=== PATIENT | male | born 1940 | race Caucasian/White ===

== ENCOUNTER → 2020-09-25 10:00 | Outpatient (CLI) | payer BC, SELFPAY | PROVIDERS: PCP Student in an Organized Health Care Education/Training Program; Visit Provider Specialist | DX: N39.0 Urinary tract infection, site not specified (principal); R97.20 Elevated prostate specific antigen [PSA]; N40.1 Benign prostatic hyperplasia with lower urinary tract symptoms; N13.8 Other obstructive and reflux uropathy | CPT/HCPCS: 81002; 87077; 87086; 87147; 87186 ==

== ENCOUNTER → 2020-09-25 11:28 | Outpatient (CLI) | payer BC, SELFPAY ==
[2020-09-25 13:35] LABS: Prostate Specific Antigen 13.1 ng/mL (0.10-4.00)
== END ==
PROVIDERS: PCP Student in an Organized Health Care Education/Training Program; Referring Provider Specialist; Visit Provider Specialist
DX: R97.20 Elevated prostate specific antigen [PSA] (principal)
CPT/HCPCS: 36415; 84153

== ENCOUNTER 2021-02-10 10:14 | Inpatient (IN) | payer BC, MEDICARE, SELFPAY ==
[2021-02-05 08:10] VITALS: BMI 34.8
[2021-02-10] VITALS (34 sets, daily range): BP systolic 100–134; BP diastolic 47–83; PULSE 88–147; RESP 12–20; TEMP 36.1–36.7; O2SAT 91–99; BMI 34.8
--- NOTE | 2021-02-10 | PATH_ITS ---
[facility] Accession Number: [id number] . 01 Material submitted: . prostate - PROSTATE . 01 Clinical history: . SIMPLE OPEN PROSTATECTOMY . 02 Diagnosis: Prostate, Prostatectomy: Prostatic tissue with stromal and glandular hyperplasia. 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 No malignancy identified. [facility] 02/13/2021 1545 Local . 02 Electronically signed: . Carolyn Jones MD, Pathologist NPI- [id number] . 01 Gross description: . The specimen is received in formalin and labeled with prostate adenoma. It consists of a 168 gram, 7.5 cm (left to right) x 6.8 cm (apex to base) x 6.2 cm (anterior to posterior) prostate. The vas deferens and seminal vesicles are not included. The capsule is pink-agrcia focally congested and ragged. The specimen is inked as follows: anterior - yellow, left - green, posterior - red, and right - black. The bladder and apical margins are shaved, and the remaining prostate is serially sectioned from apex to base into seventeen slices. Sectioning reveals pink-garcia, diffusely trabeculated, focally hemorrhagic cut surfaces with cystic degeneration present in less than five percent of cut surfaces. A distinct nodule or lesion is not grossly apparent. Medical Bill Processor sections are submitted. . Summary of Sections: A1-A5 = slice 1, apical margin, radially sectioned, four pieces. A6-A7 = slice 4 posterior, bisected, one piece. A8-A9 = slice 7 posterior, bisected, one piece. A10-A11 = slice 9 posterior, bisected, one piece. A12 = slice 9 anterior left, one piece. A13-A14 = slice 11 posterior, bisected, one piece. A15 = slice 11 anterior right, one piece. A16-A17 = slice 13 posterior, bisected, one piece. A18 = slice 14 posterior left, one piece. A19 = slice 14 posterior right, one piece. A20 = slice 14 anterior left, one piece. A21 = slice 14 anterior right, one piece. A22-A24 = slice 15, graphic art sales representative, one piece. A25-A29 = slice 17, bladder margin, en face, one piece. . Note: Slide A30 was canceled, and it is not in the gross. There is no tissue in that slide, and it does not exist. ([id number]) /[facility] 02/11/2021 1649 Local . 02 Pathologist provided ICD-10: N32.0 . 02 CPT . 046008 Performed at: 01 [facility] [address] [place] [address] [id number] MD Danny Rangel MD Phone: [phone] Performed at: 02 [facility] [address] [place] [address] [id number] MD Carol Ann Jaimes MD Phone: [phone]
--- NOTE | 2021-02-10 11:05 | SUR.PREOP ---
Rapid covid obtained by thao DOBBS and sent will await results.
[2021-02-10 11:37] LABS: COVID19 -Nasal RAPID Negative (Negative)
[2021-02-10] MEDS: LACTATED RINGERS 1,000 ML 42 ML IV ×3 (11:53→15:25)
[2021-02-10] MEDS: GABAPENTIN 300 MG CAPSULE PO (12:06)
--- NOTE | 2021-02-10 12:12 | PM.HP.1 ---
History of Present Illness History of Present Illness Date Patient Seen: 02/10/21 Time Patient Seen: 12:12 Chief complaint: Simple Open Prostatectomy Narrative: Mr. antoine he is an 80-year-old white male presenting today for schedule simple open prostatectomy for a many year history of advancing and now severe lower urinary tract symptoms. He also has a history of elevated PSA and is status post negative prostate needle biopsy in November of 2020. Urethral length was measured at 6 cm and prostate volume was measured at 330 cc. Trials of medical management were attempted but found to provide very little benefit. He has decided he wants to proceed with definitive therapy. Given the markedly increased volume of the prostate, simple open prostatectomy is indicated. Patient History Medical History BPH (benign prostatic hyperplasia) BPH w urinary obs/LUTS Elevated PSA HLD (hyperlipidemia) Pseudophakia Surgical History (Updated 02/05/21 @ 09:19 by Domonique Ragland RN) History of cataract surgery Hx of prostate biopsy (12/10/20) Hx of tonsillectomy (1944) Family & Social History Social History: household members none Prior Living Arrangements House Safety & Behavioral: Feels Safe in Current Yes Environment Been Physically Hurt or No Threatened By a Person Suicidal Ideation Description None Suicide Plan Description No Plan Tobacco & Substance use: Smoking Status Never smoker alcohol intake never Substance Use Type does not use Meds Home Medications and Allergies Home Medications Medication Instructions Recorded Confirmed Type ascorbic acid (vitamin C) 100 mg 100 mg PO DAILY 09/20/20 02/05/21 History tablet (Vitamin C) ciprofloxacin HCl 500 mg tablet 500 mg PO BID #6 tab 12/02/20 02/05/21 Rx Allergies Allergy/AdvReac Type Severity Reaction Status Date / Time No Known Drug Allergies Allergy Verified 02/10/21 11:48 Review of Systems Review of Systems ROS: Yes All systems reviewed with the patient and are negative except as otherwise documented Exam Narrative Exam Narrative: He is a well-developed, moderately over nourished elderly white male looking younger than his stated age. Head/neck-sclera clear and pupils round and equal bilaterally. No visible evidence of adenopathy or JVD. Chest-clear, equal and unlabored expansion bilaterally. Heart-regular rhythm and rate. Objective Labs Labs: Laboratory Results - last 24 hr 02/10/21 10:43 SARS-CoV-2 (PCR) Negative Assessment & Plan Assessment and plan (1) BPH w urinary obs/LUTS: Status: Acute Assessment & Plan narrative: Assessment: 1. Markedly enlarged prostate an 80-year-old male with severe lower urinary tract symptoms and failure medical therapy. Plan: 1. Lengthy discussion informed consent has been obtained for simple open prostatectomy.
--- NOTE | 2021-02-10 12:15 | PM.PREOP ---
Pre-operative Note Interval Note History & Physical reviewed/Exam performed by Physician: Yes Changes to H&P: No
[2021-02-10] MEDS: ACETAMINOPHEN IV 1,000 MG/100 ML VIAL 400 MG IV (13:24)
[2021-02-10] MEDS: CEFAZOLIN 1 GM VIAL 2 GM IV (13:36)
[2021-02-10] MEDS: BUPIVACAINE 0.5% (PF) VIAL 30 ML INJ (13:52)
[2021-02-10] MEDS: BUPIVACAINE LIPOSOME 266 MG/20 ML VIAL INJ (13:53)
[2021-02-10] MEDS: LACTATED RINGERS 1,000 ML 120 ML IV (15:05)
--- NOTE | 2021-02-10 16:02 | PM.OP.1 ---
Operative Date/Time/Diagnoses Date of procedure: 02/10/21 Time of procedure: 16:02 Pre-op diagnosis: Bladder outlet obstruction Post-op diagnosis: same Procedure & Clinicians Procedure: 1. Simple open prostatectomy. Same procedure as scheduled: Yes Indications: 1. Bladder outlet obstruction due to markedly enlarged prostate (330 cc). Surgeon: Haley Penny Link Trainer Operator: Jaycee Arias Anesthesia Type: General, Spinal and Local Operative Notes Findings: Tissue planes were unremarkable other than excessive abdominal wall and intrapelvic fat. Prostate adenoma was expectedly enormous. Closure Type: primary Specimen(s): other (Prostate adenoma.) Applied: catheter (Twenty-four Tuvaluan [address] hematuria catheter) and drain(s) (15 Tu[place]uan Brody drain) Estimated Blood Loss (mL): 400 Blood products transfused: none Tourniquet time (min): 0 Procedure in detail: The patient was positioned in supine following successful placement of Duramorph spinal. He was then provided general anesthesia. The abdomen, genitalia, groin were then prepped and draped in sterile fashion. A 20 Tu[place] Cervantes catheter was inserted in the bladder and the balloon inflated to 15 cc. A midline infraumbilical incision was then made above the pubic symphysis and division of the midline abdominal wall was undertaken using sharp cautery and blunt technique. Retroperitoneal pelvis was then entered and the bladder was filled with 200 cc of sterile saline for localization. The adherent fat to the anterior and dome of the bladder was then carefully resected away using blunt technique. A midline cystotomy was then created in the bladder contents were drained. A solution of local anesthetic with epinephrine was then utilized to infiltrate the mucosa and subcutaneous smooth muscle of the bladder neck. The hand-held cautery was then used to create a circumferential incision at the bladder neck. The adenoma was encountered. And the appropriate plane was developed and exposed successively and painstakingly. An 0 Vicryl suture was used to engage the adenoma and provide gentle traction as dissection continued circumferentially. Eventually the prostatic apex was encountered and the urethra was divided using sharp and blunt technique. Prostatic fossa was then packed with 2 lap sponges and Gelfoam a gentle pressure was applied for approximately 10 minutes. Next the bladder neck was repaired as needed for hemostasis. A [address] 30 [address] Cervantes catheter was then and certain lower urinary tract and advanced with the tip into the bladder under direct visualization. Part of the prostatic capsule anteriorly had during delivery of the very large specimen. This was repaired using a running intermittently locking 2-0 PDS. Next, the anterior cystotomy was closed using a running intermittently locking 2-0 PDS. The catheter balloon was then inflated to 30 cc and the catheter was irrigated and was found to be free of bleeding or clots. A catheter plug was placed in the inflow and the outflow was placed to gravity drainage. Next a 15 [place] Brody drain was positioned through separate stab incision to the right of the midline incision. It was secured to the skin using 2-0 silk using a Lalo sandals technique. Now the midline fascia was reapproximated using running 0 PDS beginning at the superior apex and the inferior apex and meeting at approximately the mid point in time 1 another together. The subcutaneous Kyle's fascia was reapproximated with running 3-0 Vicryl. The skin was reapproximated a running subcuticular 4-0 Monocryl. Telfa dressing was tailored to appropriate size and length for the incision and line and drain. Transparent Op site dressing was then applied over the incision and the drain creating a Bioclusive finish. The patient was then awakened, transferred to [facility], and transported to recovery in stable condition. Complications: none Post-operative Condition: stable Disposition: PACU Plan for aftercare: Acute care
--- NOTE | 2021-02-10 17:34 | SUR.PHASEI ---
1725 Pt transfered to 205 by Rodrick Casiano in bed. Pt awake, alert. Cervantes and Brody drain emptied prior to transferred and pt turned and changed. Pt able to turn self with assist in bed and with moving up in bed. Denies Pain. CBI in place and flowing. SBAR report called to Rosmery CASIANO.
--- NOTE | 2021-02-10 18:06 | PC.ADMIT ---
[address] Admission Note: The patient,Alexis Villareal,80 y/o, was given written information regarding hospital policies, unit procedures and contact persons. Patient's smoking status: Never smoker. Vital Signs - 8 hr 02/10/21 12:08 02/10/21 16:19 02/10/21 16:24 Temperature 98.0 F 97.7 F Pulse Rate 88 108 H 103 H Respiratory Rate 20 12 12 Blood Pressure 134/71 120/65 115/56 L Pulse Oximetry 99 96 95 02/10/21 16:29 02/10/21 16:34 02/10/21 16:39 Temperature Pulse Rate 113 H 109 H 106 H Respiratory Rate 20 18 15 Blood Pressure 111/63 111/63 117/65 Pulse Oximetry 97 95 95 02/10/21 16:44 02/10/21 16:59 02/10/21 17:14 Temperature 98 F Pulse Rate 107 H 106 H 105 H Respiratory Rate 20 12 12 Blood Pressure 114/66 111/61 108/47 L Pulse Oximetry 96 97 97 Patient arrived on floor at 1735 from PACU via bed. Continuous bladder irrigation running, drain and dressings checked with PACU nurse. Post-op vitals started via NICKO Lopez. Patient oriented to room and floor, call light given, bed alarm on. Denies pain at this time. Nguyễn, patient's son, called to let know patient was on floor.
[2021-02-10] MEDS: LACTATED RINGERS 1,000 ML 125 ML IV (19:05)
--- NOTE | 2021-02-10 20:59 | PC.NURSE ---
Dr. Penny notified at 2039 for patients tachycardia. RN reported HR in the 160s/170s. Pt instructed to bear down, no change. Denies pain. Dr. Penny ordered Hospitalist consult. Hospitalists notified via phone. No further orders received.
[2021-02-10 21:22] LABS: Creatine Kinase 152 U/L (55-170); Estimated Glomerular Filt Rate > 60.0 mL/min (>60)
[2021-02-10 21:30] LABS: Add Manual Diff / Slide Review NO; Basophils Absolute Auto 0 /uL (0-100); Basophils Percent Auto 0.1 % (0-2); Eosinophils Absolute Auto 0 /uL (0-450); Hematocrit 39.1 % (41-53); Hemoglobin 12.7 g/dL (13.5-17.5); Lymphocytes Absolute Auto 800 /uL (1100-4500); Lymphocytes Percent Auto 3.1 % (25-40); Mean Corpuscular HGB Conc 32.5 % (30-36); Mean Corpuscular Hemoglobin 29.6 PG (26-34); Mean Corpuscular Volume 90.9 fL (80-100); Monocytes Absolute Auto 1400 /uL (0-900); Monocytes Percent Auto 5.3 % (3-14); Neutrophils Absolute Auto 24200 /uL (1500-7000); Neutrophils Percent Auto 91.5 % (50-75); Platelet Count 286 X10^3/uL (150-400); Red Cell Distribution Width 14.1 % (11.6-14.8); White Blood Cell Count 26.4 X10^3/uL (4.5-11.0)
[2021-02-10] MEDS: SODIUM CHLORIDE 0.9% 100 ML 500 ML IV (21:34)
[2021-02-10 21:35] LABS: Troponin I < 0.012 ng/mL (0.01-0.034)
[2021-02-10 21:38] LABS: CKMB % Relative Index 1.3 % (1.5-5.0); Creatine Kinase MB 1.93 ng/mL (<2.37)
[2021-02-10 21:42] LABS: BUN Creatinine Ratio 18.4 (6-22); Blood Urea Nitrogen 16 mg/dL (9-20); Calcium 8.5 mg/dL (8.4-10.2); Carbon Dioxide 21 mmol/L (22-32); Chloride 103 mmol/L (98-107); Estimated Glomerular Filt Rate > 60.0 mL/min (>60); Glucose 180 mg/dL (80-110); HEMOLYSIS < 15 (0-50); Potassium 4.1 mmol/L (3.4-5.1); Sodium 136 mmol/L (137-145)
[2021-02-10 22:08] LABS: Lactate (Lactic Acid) 5.3 mmol/L (0.7-2.1)
--- NOTE | 2021-02-10 22:12 | DI.RAD.S_ITS ---
PROCEDURE: XR CHEST 1V INDICATIONS: sepsis TECHNIQUE: One view of the chest was acquired. COMPARISON: None. FINDINGS: Surgical changes and devices: None. Lungs and pleura: Lungs are clear. No pleural effusions or pneumothorax. Mildly elevated right hemidiaphragm. Mediastinum: Mediastinal contours appear normal. Heart size is normal. Bones and chest wall: No suspicious bony lesions. Overlying soft tissues appear unremarkable. IMPRESSION: No acute cardiopulmonary disease process. Dictated by: Cait Hilliard MD, PhD on 02/11/2021 at 8:30 Approved by: Cait Hilliard MD, PhD on 02/11/2021 at 8:31
[2021-02-10] MEDS: SODIUM CHLORIDE 0.9% 1,000 ML 150 ML IV (22:15)
[2021-02-10] MEDS: cefTRIAXone 1,000 MG in SODIUM CHLORIDE 0.9% 100 ML 200 ML IV (22:30)
[2021-02-10] MEDS: SODIUM CHLORIDE 0.9% 1,000 ML 1000 ML IV ×2 (23:01→23:49)
[2021-02-10 23:18] LABS: Reflexed Lactate in 2 Hours Y
--- NOTE | 2021-02-10 23:30 | P.CONS_ITS ---
History of Present Illness Consult details Date Patient Seen: 02/10/21 Time Patient Seen: 21:00 Chief complaint: Simple Open Prostatectomy Reason for consult: Elevated heart rate Requesting provider: Haley Penny Narrative: Alexis Villareal is an 80-year-old male with a history of an elevated PSA and hyperlipidemia who lives on Wednesday and was admitted for an elective open prostatectomy done earlier today. The hospital medicine service was requested to assist the urologist with the patient's current report of an elevated heart rate into the 150s. The patient did not report any pain or feel any palpitations. He did state that he felt diaphoretic, requesting that the windows be opened. He denied chest pain. The patient has a 3 way bladder irrigation catheter which was currently alternating between conn colored and clear. There appeared to be some outpatient records that indicated that the patient at that time had a heart rate of 132 and when I entered the room it was in the mid 140s. His blood pressure was on the soft side with a systolic in the 100s but he had a MAP of 82. Meds Home Medications and Allergies Home Medications Medication Instructions Recorded Confirmed Type ascorbic acid (vitamin C) 100 mg 100 mg PO DAILY 09/20/20 02/10/21 History tablet (Vitamin C) ciprofloxacin HCl 500 mg tablet 500 mg PO BID #6 tab 12/02/20 02/10/21 Rx guaifenesin 600 mg tablet, 1,200 mg PO DAILY 02/10/21 02/10/21 History extended release 12 hr (Mucinex) Allergies Allergy/AdvReac Type Severity Reaction Status Date / Time No Known Drug Allergies Allergy Verified 02/10/21 11:48 Review of Systems Review of Systems ROS: Yes All systems reviewed with the patient and are negative except as otherwise documented Exam Vital Signs (past 8 hours): - 02/10/21 16:19 02/10/21 16:24 02/10/21 16:29 Temperature 97.7 F Pulse Rate 108 H 103 H 113 H Respiratory Rate 12 12 20 Blood Pressure 120/65 115/56 L 111/63 Pulse Oximetry 96 95 97 02/10/21 16:34 02/10/21 16:39 02/10/21 16:44 Temperature Pulse Rate 109 H 106 H 107 H Respiratory Rate 18 15 20 Blood Pressure 111/63 117/65 114/66 Pulse Oximetry 95 95 96 02/10/21 16:59 02/10/21 17:14 02/10/21 17:35 Temperature 98 F 97.6 F Pulse Rate 106 H 105 H 113 H Respiratory Rate 12 12 16 Blood Pressure 111/61 108/47 L 120/71 Pulse Oximetry 97 97 92 02/10/21 18:05 02/10/21 18:35 02/10/21 19:04 Temperature 97.3 F L 97.0 F L Pulse Rate 113 H 118 H 138 H Respiratory Rate 16 17 Blood Pressure 119/68 121/72 129/83 Pulse Oximetry 91 94 02/10/21 19:35 02/10/21 20:01 02/10/21 20:04 Temperature 96.9 F L Pulse Rate 130 H 129 H Respiratory Rate 18 Blood Pressure 116/74 118/74 Pulse Oximetry 94 96 02/10/21 20:32 02/10/21 20:35 02/10/21 21:11 Temperature 97.4 F L Pulse Rate 141 H 144 H Respiratory Rate 18 Blood Pressure 109/76 109/76 Pulse Oximetry 95 97 02/10/21 21:19 02/10/21 21:22 02/10/21 21:25 Temperature Pulse Rate 143 H 137 H 138 H Respiratory Rate Blood Pressure 100/67 110/78 122/75 Pulse Oximetry 02/10/21 21:37 02/10/21 21:44 02/10/21 21:54 Temperature Pulse Rate 135 H 133 H 128 H Respiratory Rate Blood Pressure 104/69 100/68 116/67 Pulse Oximetry 02/10/21 22:05 02/10/21 22:15 02/10/21 22:21 Temperature Pulse Rate 126 H 127 H 147 H Respiratory Rate 18 Blood Pressure 106/63 114/67 Pulse Oximetry 97 02/10/21 22:25 02/10/21 22:35 02/10/21 22:45 Temperature Pulse Rate 137 H 124 H 122 H Respiratory Rate Blood Pressure 111/74 115/72 120/73 Pulse Oximetry 02/10/21 22:55 Temperature Pulse Rate 123 H Respiratory Rate Blood Pressure 119/78 Pulse Oximetry Oxygen Delivery Method Nasal Cannula Oxygen Flow Rate 2 Narrative Exam Narrative: Gen: Alert, oriented, obese 80 y.o. male, diaphoretic HEENT: normocephalic, atraumatic, conjunctiva clear, sclera non-icteric, oral mucosa pink and moist Neck: supple, full ROM, no JVD, trachea is midline Resp: Lungs CTA, non-labored breathing CV: RRR, grade 2 holosystolic murmur Abd: soft, non-tender, normoactive BTs : He has a 3 way bladder irrigation Cervantes set up draining pink to red colored urine Skin: no lesions or rashes, dry and intact Neuro: Alert and oriented X 4 w/no focal deficits. Speech clear and coherent. Extremities: moves all 4 extremities, is ambulatory, negative Yolis?s sign Psyche: normal mood and affect. Objective ECG Impression: SVT of 142, interpreted by me. Labs Result Diagrams: 02/10/21 20:55 02/10/21 21:16 Labs: Laboratory Results - last 24 hr 02/10/21 02/10/21 02/10/21 10:43 20:55 20:55 WBC 26.4 H RBC 4.30 L Hgb 12.7 L Hct 39.1 L MCV 90.9 MCH 29.6 MCHC 32.5 RDW 14.1 Plt Count 286 Neut % (Auto) 91.5 H Lymph % (Auto) 3.1 L [place] % (Auto) 5.3 Eos % (Auto) 0.0 L Baso % (Auto) 0.1 Neut # (Auto) 82619 H Lymph # (Auto) 800 L [place] # (Auto) 1400 H Eos # (Auto) 0 Baso # (Auto) 0 Sodium Potassium Chloride Carbon Dioxide BUN Creatinine 0.90 Estimated GFR > 60.0 BUN/Creatinine Ratio Glucose Lactate Calcium Magnesium Total Creatine Kinase CK-MB (CK-2) CK-MB (CK-2) Rel Index Troponin I SARS-CoV-2 (PCR) Negative 02/10/21 02/10/21 02/10/21 20:55 20:55 21:16 WBC RBC Hgb Hct MCV MCH MCHC RDW Plt Count Neut % (Auto) Lymph % (Auto) [place] % (Auto) Eos % (Auto) Baso % (Auto) Neut # (Auto) Lymph # (Auto) [place] # (Auto) Eos # (Auto) Baso # (Auto) Sodium Potassium Chloride Carbon Dioxide BUN Creatinine Estimated GFR BUN/Creatinine Ratio Glucose Lactate 5.3 H* Calcium Magnesium 2.0 Total Creatine Kinase 152 CK-MB (CK-2) 1.93 CK-MB (CK-2) Rel Index 1.3 L Troponin I < 0.012 SARS-CoV-2 (PCR) 02/10/21 21:16 WBC RBC Hgb Hct MCV MCH MCHC RDW Plt Count Neut % (Auto) Lymph % (Auto) [place] % (Auto) Eos % (Auto) Baso % (Auto) Neut # (Auto) Lymph # (Auto) [place] # (Auto) Eos # (Auto) Baso # (Auto) Sodium 136 L Potassium 4.1 Chloride 103 Carbon Dioxide 21 L BUN 16 Creatinine 0.87 Estimated GFR > 60.0 BUN/Creatinine Ratio 18.4 Glucose 180 H Lactate Calcium 8.5 Magnesium Total Creatine Kinase CK-MB (CK-2) CK-MB (CK-2) Rel Index Troponin I SARS-CoV-2 (PCR) Assessment & Plan Assessment and plan (1) SVT (supraventricular tachycardia): Status: Acute (2) History of prostate surgery: Status: Acute (3) Sepsis: Status: Acute (4) Bacteremia: Status: Acute Assessment & Plan narrative: Alexis Villareal was found to be in SVT as determined by EKG. Patient's blood pressure was soft and concerning for attempting cardioversion with diltiazem. Consideration was made to administer adenosine however with normal saline boluses the patient's heart rate responded to such. He was given 3 L of normal saline boluses based on sepsis protocol. He was ordered for a full lab panel, troponin, and lactate as preoperative labs had not been done. Patient's blood cultures were taken and he was started on IV ceftriaxone due to his symptoms. His lactate was intially 5.5, WBC 26,000 with a left shift of 24,000. Treated patient symptomatically with ice packs due to his perception of a fever however he was not febrile. 1. SVT, acute and present s/p surgery * EKG was done indicated SVT * Patient was bolused initially 500 cc of normal saline 2. Sepsis in the setting of postoperative state * Chest xray report indicated elevation of the right hemidiaphragm with volume loss and pneumonia is not likely * Sepsis protocol initiated w/3 additional liters of IV NS bolus * Procalcitonin was 0.11, normal 3. Open prostatectomy * Managed by surgery Critical Care Time Critical Care Time: Yes Total Critical Care Time: 90 minutes Attestation: The high probability of a clinically significant, sudden or life threatening deterioration of the circulatory system(s) required my full and direct attention, intervention and personal management. The aggregate critical care time was 90 minutes. This time is in addition to time spent performing reported procedures but includes the following: * Data Review and interpretation * Patient assessment and monitoring of vital signs * Documentation * Medication orders and management VTE prophylaxis: Bilateral SCDs, patient is POD #0 Patient is transferred to the ICU. FEN: IV NS at 150 ml/hour, diet orders per surgery, CMP and magnesium in the am. Dispo: per surgery and as soon as he is stable Code Status: Full code as discussed with patient Nguyễn Garibay, son, surrogate and POA Thank you for the opportunity to consult on this patient. COVID-19 COVID-19 status: Negative Result date/Date tested (Pos, Neg/Pending): 02/10/21 Time Spent With Patient Time with patient: Greater than 35 minutes (Critical care time: 90 minutes)
[2021-02-10 23:53] LABS: Lactate 2HR (Lactic Acid Rflx) 2.1 mmol/L (0.7-2.1)
[2021-02-11] VITALS (11 sets, daily range): BP systolic 109–136; BP diastolic 51–62; PULSE 88–111; RESP 14–18; TEMP 36.2–37.2; O2SAT 93–97; BMI 34.8
[2021-02-11] MEDS: SODIUM CHLORIDE 0.9% 1,000 ML 1000 ML IV (00:53)
--- NOTE | 2021-02-11 01:26 | PC.NURSE ---
2300-Patient transferred from room 205 beside report received from Rosmery DOBBS. Patient is alert and oriented and in no distress. Continuous Bladder Irrigation infusion per orders output paez colored. Heart rate at this time is sinus tach at 110. Patient reports he has no pain. Sepsis protocol .9ns infusion per orders. Patient is tolerating well. Upon assessment patient noted to have a loud murmur and or rub. FINISHED [employer] MAKER Escalante asked to come and assess as this is not noted in patients admit assessments. Will monitor closely.
[2021-02-11] MEDS: SODIUM CHLORIDE 0.9% 1,000 ML 150 ML IV (02:14)
[2021-02-11 03:50] LABS: Procalcitonin 0.11 ng/mL (<0.5)
[2021-02-11 04:45] LABS: Add Manual Diff / Slide Review NO; Basophils Absolute Auto 0 /uL (0-100); Basophils Percent Auto 0.1 % (0-2); Eosinophils Absolute Auto 0 /uL (0-450); Hematocrit 31.3 % (41-53); Hemoglobin 10.4 g/dL (13.5-17.5); Lymphocytes Absolute Auto 900 /uL (1100-4500); Lymphocytes Percent Auto 5.5 % (25-40); Mean Corpuscular HGB Conc 33.3 % (30-36); Mean Corpuscular Hemoglobin 30.3 PG (26-34); Mean Corpuscular Volume 90.8 fL (80-100); Monocytes Absolute Auto 1100 /uL (0-900); Monocytes Percent Auto 6.7 % (3-14); Neutrophils Absolute Auto 14500 /uL (1500-7000); Neutrophils Percent Auto 87.7 % (50-75); Platelet Count 224 X10^3/uL (150-400); Red Blood Cell Count 3.44 X10^6/uL (4.5-5.9); White Blood Cell Count 16.5 X10^3/uL (4.5-11.0)
[2021-02-11 04:53] LABS: Alanine Aminotransferase 21 IU/L (<50); Albumin 2.6 g/dL (3.5-5.0); Alkaline Phosphatase 65 U/L (38-126); Aspartate Aminotransferase 29 IU/L (17-59); BUN Creatinine Ratio 23.7 (6-22); Bilirubin Total 0.4 mg/dL (0.2-1.3); Bilirubin Unconjugated 0.3 mg/dL (0.0-1.1); Blood Urea Nitrogen 14 mg/dL (9-20); Calcium 7.4 mg/dL (8.4-10.2); Carbon Dioxide 25 mmol/L (22-32); Chloride 109 mmol/L (98-107); Estimated Glomerular Filt Rate > 60.0 mL/min (>60); Globulin 2.7 g/dL (1.7-4.1); Glucose 139 mg/dL (80-110); HEMOLYSIS < 15 (0-50); Magnesium 1.9 mg/dL (1.6-2.3); Potassium 4.3 mmol/L (3.4-5.1); Sodium 136 mmol/L (137-145); Total Protein 5.3 g/dL (6.3-8.2)
--- NOTE | 2021-02-11 07:46 | P.PN_ITS ---
Subjective Subjective Date Patient Seen: 02/11/21 Time Patient Seen: 07:47 Interval history: The patient is postop day 1. Status post simple open prostatectomy. In the early postoperative. He developed sinus tachycardia in the 160s. He remained afebrile. Blood pressure was mildly depressed with systolics in the 100s and MAP of 82. I was contacted by nursing with regard to tachycardia. I requested hospitalist evaluation, which was kindly accepted by Dr. Escalante. The patient reports feeling well this morning and slept well through the night. He denies significant pain. He is drinking p.o. fluids. Vital signs have essentially normal eyes following IV fluid boluses per sepsis protocol and 1 g of ceftriaxone intravenously. He had received 2 g of cefazolin preoperatively. Per routine a urine specimen was obtained prior to operation while in the operating room. Upon my review of [facility], the specimen had been received by the lab but no reporting is documented in the EHR at this time. Exam Vital Signs (past 8 hours): - 02/11/21 00:00 02/11/21 01:00 02/11/21 02:00 Temperature 97.1 F L Pulse Rate 103 H 92 H 90 Blood Pressure 115/62 109/55 L 117/59 L Pulse Oximetry 97 96 97 02/11/21 03:00 02/11/21 04:00 02/11/21 06:00 Temperature 97.5 F L Pulse Rate 89 90 Blood Pressure 109/59 L 113/56 L Pulse Oximetry 97 97 Oxygen Delivery Method Nasal Cannula Oxygen Flow Rate 2 Narrative Exam Narrative: He is resting comfortably in bed and in no distress. Chest-equal and unlabored expansion bilaterally. Heart-NSR Abdomen-bowel tones are present the abdomen is nondistended. Dressings and BRANDT drain are intact. Cervantes-outflow was light pink without clots at minimal CBI drip rate. Extremities-pulses are palpable and without cyanosis or pallor. Objective Labs Result Diagrams: 02/11/21 04:19 02/11/21 04:19 Labs: Laboratory Results - last 24 hr 02/10/21 02/10/21 02/10/21 10:43 20:55 20:55 WBC 26.4 H RBC 4.30 L Hgb 12.7 L Hct 39.1 L MCV 90.9 MCH 29.6 MCHC 32.5 RDW 14.1 Plt Count 286 Neut % (Auto) 91.5 H Lymph % (Auto) 3.1 L [place] % (Auto) 5.3 Eos % (Auto) 0.0 L Baso % (Auto) 0.1 Neut # (Auto) 22370 H Lymph # (Auto) 800 L [place] # (Auto) 1400 H Eos # (Auto) 0 Baso # (Auto) 0 Sodium Potassium Chloride Carbon Dioxide BUN Creatinine 0.90 Estimated GFR > 60.0 BUN/Creatinine Ratio Glucose Lactate Calcium Magnesium Total Bilirubin Conjugated Bilirubin Unconjugated Bilirubin AST ALT Alkaline Phosphatase Total Creatine Kinase CK-MB (CK-2) CK-MB (CK-2) Rel Index Troponin I Total Protein Albumin Globulin Albumin/Globulin Ratio Procalcitonin SARS-CoV-2 (PCR) Negative 02/10/21 02/10/21 02/10/21 20:55 20:55 20:55 WBC RBC Hgb Hct MCV MCH MCHC RDW Plt Count Neut % (Auto) Lymph % (Auto) [place] % (Auto) Eos % (Auto) Baso % (Auto) Neut # (Auto) Lymph # (Auto) [place] # (Auto) Eos # (Auto) Baso # (Auto) Sodium Potassium Chloride Carbon Dioxide BUN Creatinine Estimated GFR BUN/Creatinine Ratio Glucose Lactate Calcium Magnesium 2.0 Total Bilirubin Conjugated Bilirubin Unconjugated Bilirubin AST ALT Alkaline Phosphatase Total Creatine Kinase 152 CK-MB (CK-2) 1.93 CK-MB (CK-2) Rel Index 1.3 L Troponin I < 0.012 Total Protein Albumin Globulin Albumin/Globulin Ratio Procalcitonin 0.11 SARS-CoV-2 (PCR) 02/10/21 02/10/21 02/10/21 21:16 21:16 23:31 WBC RBC Hgb Hct MCV MCH MCHC RDW Plt Count Neut % (Auto) Lymph % (Auto) [place] % (Auto) Eos % (Auto) Baso % (Auto) Neut # (Auto) Lymph # (Auto) [place] # (Auto) Eos # (Auto) Baso # (Auto) Sodium 136 L Potassium 4.1 Chloride 103 Carbon Dioxide 21 L BUN 16 Creatinine 0.87 Estimated GFR > 60.0 BUN/Creatinine Ratio 18.4 Glucose 180 H Lactate 5.3 H* 2.1 Calcium 8.5 Magnesium Total Bilirubin Conjugated Bilirubin Unconjugated Bilirubin AST ALT Alkaline Phosphatase Total Creatine Kinase CK-MB (CK-2) CK-MB (CK-2) Rel Index Troponin I Total Protein Albumin Globulin Albumin/Globulin Ratio Procalcitonin SARS-CoV-2 (PCR) 02/11/21 02/11/21 04:19 04:19 WBC 16.5 H RBC 3.44 L Hgb 10.4 L Hct 31.3 L MCV 90.8 MCH 30.3 MCHC 33.3 RDW 14.0 Plt Count 224 Neut % (Auto) 87.7 H Lymph % (Auto) 5.5 L [place] % (Auto) 6.7 Eos % (Auto) 0.0 L Baso % (Auto) 0.1 Neut # (Auto) 69047 H Lymph # (Auto) 900 L [place] # (Auto) 1100 H Eos # (Auto) 0 Baso # (Auto) 0 Sodium 136 L Potassium 4.3 Chloride 109 H Carbon Dioxide 25 BUN 14 Creatinine 0.59 L Estimated GFR > 60.0 BUN/Creatinine Ratio 23.7 H Glucose 139 H Lactate Calcium 7.4 L Magnesium 1.9 Total Bilirubin 0.4 Conjugated Bilirubin 0.0 Unconjugated Bilirubin 0.3 AST 29 ALT 21 Alkaline Phosphatase 65 Total Creatine Kinase CK-MB (CK-2) CK-MB (CK-2) Rel Index Troponin I Total Protein 5.3 L Albumin 2.6 L Globulin 2.7 Albumin/Globulin Ratio 1.0 Procalcitonin SARS-CoV-2 (PCR) [facility] Medical History BPH (benign prostatic hyperplasia) BPH w urinary obs/LUTS Elevated PSA HLD (hyperlipidemia) Pseudophakia Surgical History History of cataract surgery Hx of prostate biopsy (12/10/20) Hx of tonsillectomy (1945) Social History marital status: household members: none Smoking Status: Never smoker alcohol intake: never caffeine: No additional 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 Stable postoperative day 1. Status post simple open prostatectomy. 2. Postoperative sinus tachycardia and noted leukocytosis with left shift. Urinalysis/culture and blood cultures pending. Differential includes bacteremia/early sepsis versus hypovolemia in the early postoperative. Plan: 1. Increase diet and activity as tolerated. 2. Pathology pending. 3. Continue ceftriaxone 1 g intravenous Q 24 hours. 4. Follow-up on pending cultures. Quality VTE Deep Vein Thrombosis/Pulmonary Embolism Present on Admission: No
[2021-02-11] MEDS: ENOXAPARIN 30 MG/0.3 ML SYRINGE SUBCUT (09:30)
[2021-02-11] MEDS: guaiFENesin ER 600 MG TAB 1200 MG PO (09:31)
--- NOTE | 2021-02-11 10:58 | PC.NURSE ---
PT REPORTS NO PAIN WHILE LYING IN BED- HE DID STATE HE FELT PRESSURE INDICATING LOWER ABD WHILE STANDING AND TRANSFERRING TO CHAIR. CONTINUOUS BLADDER IRRIGATION STOPPED AT [address], WELL SALINE LOCKED IV - ENCOURAGED INCREASED PO INTAKE
--- NOTE | 2021-02-11 14:31 | CM.DANOTE ---
([facility]/Hospitalist consult) Pt. here for prostatectomy but had runs of SVT that required treatment. Pt. lives independently in [place] with his cat and dog. Independent ADLs . Son is Nguyễn Garibay [phone] Plan: home with no resource needs
--- NOTE | 2021-02-11 17:06 | P.PN_ITS ---
Subjective Subjective Interval history: The patient is an 80-year-old male admitted after an open prostatectomy with Urology. Overnight the patient developed a rapid heart rate into the 170s. Medicine was consulted at that time. His heart rate has dramatically improved today, and his supraventricular tachycardia was likely in the setting of severe hypovolemia. He possibly was infected given a WBC of 26 and elevated lactate but no source of infection has been found and procalcitonin was within normal limits. Urine culture done earlier is still pending, blood cultures are thus far negative as well. The patient feels well today and has minimal pain after his surgery. He denies any palpitations, chest pain, nausea, vomiting, or abdominal pain. Exam Vital Signs (past 8 hours): - 02/11/21 12:00 02/11/21 16:13 Temperature 98.4 F 98.3 F Pulse Rate 95 H 102 H Respiratory Rate 14 17 Blood Pressure 130/51 L 117/60 Pulse Oximetry 95 96 Oxygen Delivery Method Room Air Oxygen Flow Rate 0 Narrative Exam Narrative: Gen: Alert, oriented, obese 80 y.o. male, diaphoretic HEENT: normocephalic, atraumatic, conjunctiva clear, sclera non-icteric, oral mucosa pink and moist Neck: supple, full ROM, no JVD, trachea is midline Resp: Lungs CTA, non-labored breathing CV: RRR, no murmurs, rubs, or gallops. Abd: soft, non-tender. BRANDT drain with sanguinous output, minimal. : He has a 3 way bladder irrigation Cervantes set up draining pink to red colored urine Skin: no lesions or rashes, dry and intact Neuro: Alert and oriented X 4 w/no focal deficits. Speech clear and coherent. Extremities: moves all 4 extremities, is ambulatory, negative Yolis?s sign Psyche: normal mood and affect. Objective Labs Result Diagrams: 02/11/21 04:19 02/11/21 04:19 Labs: Laboratory Results - last 24 hr 02/10/21 02/10/21 02/10/21 20:55 20:55 20:55 WBC 26.4 H RBC 4.30 L Hgb 12.7 L Hct 39.1 L MCV 90.9 MCH 29.6 MCHC 32.5 RDW 14.1 Plt Count 286 Neut % (Auto) 91.5 H Lymph % (Auto) 3.1 L [place] % (Auto) 5.3 Eos % (Auto) 0.0 L Baso % (Auto) 0.1 Neut # (Auto) 77520 H Lymph # (Auto) 800 L [place] # (Auto) 1400 H Eos # (Auto) 0 Baso # (Auto) 0 Sodium Potassium Chloride Carbon Dioxide BUN Creatinine 0.90 Estimated GFR > 60.0 BUN/Creatinine Ratio Glucose Lactate Calcium Magnesium Total Bilirubin Conjugated Bilirubin Unconjugated Bilirubin AST ALT Alkaline Phosphatase Total Creatine Kinase 152 CK-MB (CK-2) 1.93 CK-MB (CK-2) Rel Index 1.3 L Troponin I < 0.012 Total Protein Albumin Globulin Albumin/Globulin Ratio Procalcitonin 02/10/21 02/10/21 02/10/21 20:55 20:55 21:16 WBC RBC Hgb Hct MCV MCH MCHC RDW Plt Count Neut % (Auto) Lymph % (Auto) [place] % (Auto) Eos % (Auto) Baso % (Auto) Neut # (Auto) Lymph # (Auto) [place] # (Auto) Eos # (Auto) Baso # (Auto) Sodium Potassium Chloride Carbon Dioxide BUN Creatinine Estimated GFR BUN/Creatinine Ratio Glucose Lactate 5.3 H* Calcium Magnesium 2.0 Total Bilirubin Conjugated Bilirubin Unconjugated Bilirubin AST ALT Alkaline Phosphatase Total Creatine Kinase CK-MB (CK-2) CK-MB (CK-2) Rel Index Troponin I Total Protein Albumin Globulin Albumin/Globulin Ratio Procalcitonin 0.11 02/10/21 02/10/21 02/11/21 21:16 23:31 04:19 WBC 16.5 H RBC 3.44 L Hgb 10.4 L Hct 31.3 L MCV 90.8 MCH 30.3 MCHC 33.3 RDW 14.0 Plt Count 224 Neut % (Auto) 87.7 H Lymph % (Auto) 5.5 L [place] % (Auto) 6.7 Eos % (Auto) 0.0 L Baso % (Auto) 0.1 Neut # (Auto) 98394 H Lymph # (Auto) 900 L [place] # (Auto) 1100 H Eos # (Auto) 0 Baso # (Auto) 0 Sodium 136 L Potassium 4.1 Chloride 103 Carbon Dioxide 21 L BUN 16 Creatinine 0.87 Estimated GFR > 60.0 BUN/Creatinine Ratio 18.4 Glucose 180 H Lactate 2.1 Calcium 8.5 Magnesium Total Bilirubin Conjugated Bilirubin Unconjugated Bilirubin AST ALT Alkaline Phosphatase Total Creatine Kinase CK-MB (CK-2) CK-MB (CK-2) Rel Index Troponin I Total Protein Albumin Globulin Albumin/Globulin Ratio Procalcitonin 02/11/21 04:19 WBC RBC Hgb Hct MCV MCH MCHC RDW Plt Count Neut % (Auto) Lymph % (Auto) [place] % (Auto) Eos % (Auto) Baso % (Auto) Neut # (Auto) Lymph # (Auto) [place] # (Auto) Eos # (Auto) Baso # (Auto) Sodium 136 L Potassium 4.3 Chloride 109 H Carbon Dioxide 25 BUN 14 Creatinine 0.59 L Estimated GFR > 60.0 BUN/Creatinine Ratio 23.7 H Glucose 139 H Lactate Calcium 7.4 L Magnesium 1.9 Total Bilirubin 0.4 Conjugated Bilirubin 0.0 Unconjugated Bilirubin 0.3 AST 29 ALT 21 Alkaline Phosphatase 65 Total Creatine Kinase CK-MB (CK-2) CK-MB (CK-2) Rel Index Troponin I Total Protein 5.3 L Albumin 2.6 L Globulin 2.7 Albumin/Globulin Ratio 1.0 Procalcitonin [facility] Medical History BPH (benign prostatic hyperplasia) BPH w urinary obs/LUTS Elevated PSA HLD (hyperlipidemia) Pseudophakia Surgical History History of cataract surgery Hx of prostate biopsy (12/10/20) Hx of tonsillectomy (194) Social History marital status: household members: none Smoking Status: Never smoker alcohol intake: never caffeine: 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 Overnight the patient developed a rapid heart rate into the 170s. Medicine was consulted at that time. 1. SVT, acute, resolved. - likely secondary to hypovolemia, possibly compounded with pain. Rates to the 170s on telemetry. He had tachycardia to the 130s as an outpatient in the clinic. EKG with an SVT here, now with borderline sinus tachycardia. Troponins were negative. Would recommend outpatient evaluation with PCP for possible chronic tachycardia given outpatient vital signs documented (holter monitor). - no current need for TTE given improvement. - ACS unlikely, troponin negative and no evidence of acute ischemia on EKG. 2. rule out Sepsis cultures thus far negative. Initial leukocytosis may be from dehydration and post operative stress, but cultures pending. Discontinue antibiotics tomorrow if cultures still negative. Sepsis protocol initiated w/3 additional liters of IV NS bolus and antibiotics. Procalcitonin was 0.11, normal 3. s/p Open prostatectomy Managed by urology Code Status: Full code as discussed with patient Nguyễn Garibay, son, surrogate and POA Thank you for the opportunity to consult on this patient. Medicine will continue to follow for now, pending cultures. If cultures negative can likely discharge tomorrow from medical perspective. Quality VTE Deep Vein Thrombosis/Pulmonary Embolism Present on Admission: No
[2021-02-11] MEDS: ACETAMINOPHEN 325 MG TABLET 650 MG PO (17:47)
--- NOTE | 2021-02-11 17:50 | PC.NURSE ---
Patient up to the bathroom for BM w/o results, patient refused dinner or prune juice. Noticed small amount of blood from pts meatus coming from around the campos catheter, cleaned up once patient got back into bed. Scant drainage noted at incision site, no drainage noted around dimitrios drain. Patient c/o mild discomfort at groin area, tylenol given. Patient resting in bed at this time.
[2021-02-11] MEDS: OXYCODONE IR 5 MG TABLET PO (21:00)
[2021-02-11] MEDS: cefTRIAXone 1,000 MG in SODIUM CHLORIDE 0.9% 100 ML 200 ML IV (21:00)
[2021-02-12] VITALS (10 sets, daily range): BP systolic 137–170; BP diastolic 65–95; PULSE 88–130; RESP 16–22; TEMP 36.1–37.2; O2SAT 91–95
[2021-02-12 01:48] LABS: Acinetobacter baumannii Not Detected (Not Detect); Candida albicans Not Detected (Not Detect); Candida glabrata Not Detected (Not Detect); Candida krusei Not Detected (Not Detect); Candida parapsilosis Not Detected (Not Detect); Candida tropicalis Not Detected (Not Detect); E. coli Not Detected (Not Detect); Enterobacter cloacae complex Not Detected (Not Detect); Enterobacteriaceae species Not Detected (Not Detect); Enterococcus species Not Detected (Not Detect); Haemophilus influenzae Not Detected (Not Detect); Listeria monocytogenes Not Detected (Not Detect); Methicillin-resistant gene Not Detected (Not Detect); Neisseria meningitidis Not Detected (Not Detect); Proteus species Not Detected (Not Detect); Pseudomonas aeruginosa Not Detected (Not Detect); Serratia marcescens Not Detected (Not Detect); Staphylococcus species Detected (Not Detect); Streptococcus agalactiae (Gr B Not Detected (Not Detect); Streptococcus pneumonia Not Detected (Not Detect); Streptococcus pyogenes (Gr A) Not Detected (Not Detect); Streptococcus species Not Detected (Not Detect)
--- NOTE | 2021-02-12 02:08 | PC.NURSE ---
Addendum entered by Janneth Ross R.N. 02/12/21 05:57: 0600- Metoprolol 25mg po given for elevated Heart rate. BP 143/67. Will monitor. Addendum entered by Janneth Ross R.N. 02/12/21 05:32: 0500- Patient assisted up to the [facility]. Unable to move his bowels and did not pass gas. Continues to ooz from his meatus. Suellen care done. Good uop hematuria noted. Patient continues to have a elevated heart rate 130's to 150. ALESSIA Lama notified order rec. Bowel care given. Will monitor. Addendum entered by Janneth Ross R.N. 02/12/21 03:08: 0310- Patient resting comfortably now. Heart rate 109 Sinus Tach. Patient is sleeping. Will monitor. Original Note: 0200- Heart rate 162 seems regular patient is asymptomatic. EKG ordered will monitor. 0215- Patient had a small emesis. States he did not feel nauseated it just came up. ALESSIA Lama aware and orders rec.
[2021-02-12] MEDS: ONDANSETRON 4 MG/2 ML INJ IV ×2 (02:46→20:20)
[2021-02-12] MEDS: MORPHINE 2 MG/ML INJ IV (02:46)
[2021-02-12] MEDS: SENNOSIDES 8.6 MG TABLET 17.2 MG PO (02:47)
[2021-02-12] MEDS: SODIUM CHLORIDE 0.9% 1,000 ML 84 ML IV ×2 (03:07→14:18)
[2021-02-12 05:49] LABS: Add Manual Diff / Slide Review NO; Alanine Aminotransferase 22 IU/L (<50); Albumin 3.3 g/dL (3.5-5.0); Albumin Globulin Ratio 1.1 (1.0-2.8); Alkaline Phosphatase 86 U/L (38-126); Aspartate Aminotransferase 43 IU/L (17-59); BUN Creatinine Ratio 18.4 (6-22); Basophils Absolute Auto 0 /uL (0-100); Basophils Percent Auto 0.2 % (0-2); Bilirubin Total 0.6 mg/dL (0.2-1.3); Bilirubin Unconjugated 0.5 mg/dL (0.0-1.1); Blood Urea Nitrogen 14 mg/dL (9-20); Calcium 8.5 mg/dL (8.4-10.2); Carbon Dioxide 23 mmol/L (22-32); Chloride 107 mmol/L (98-107); Eosinophils Absolute Auto 0 /uL (0-450); Estimated Glomerular Filt Rate > 60.0 mL/min (>60); Globulin 3.1 g/dL (1.7-4.1); Glucose 154 mg/dL (80-110); HEMOLYSIS < 15 (0-50); Hematocrit 34.6 % (41-53); Hemoglobin 11.3 g/dL (13.5-17.5); Lymphocytes Absolute Auto 2300 /uL (1100-4500); Lymphocytes Percent Auto 11.5 % (25-40); Mean Corpuscular HGB Conc 32.8 % (30-36); Mean Corpuscular Hemoglobin 29.8 PG (26-34); Mean Corpuscular Volume 90.9 fL (80-100); Monocytes Absolute Auto 1400 /uL (0-900); Monocytes Percent Auto 7.1 % (3-14); Neutrophils Absolute Auto 16600 /uL (1500-7000); Neutrophils Percent Auto 81.2 % (50-75); Platelet Count 259 X10^3/uL (150-400); Potassium 3.8 mmol/L (3.4-5.1); Red Cell Distribution Width 14.3 % (11.6-14.8); Sodium 137 mmol/L (137-145); Total Protein 6.4 g/dL (6.3-8.2); White Blood Cell Count 20.4 X10^3/uL (4.5-11.0)
[2021-02-12] MEDS: METOPROLOL IR 25 MG TABLET PO (05:51)
[2021-02-12 07:03] LABS: Hemoglobin A1C% w Est Avg Glu 5.5 % (4.0-6.0)
--- NOTE | 2021-02-12 07:39 | DI.ECHO.S_ITS ---
[facility] +---------+ [facility] +---------+ : : [address] : : : : [id number] : : : : Phone: [phone]+ Echocardiogram Report + + :Name: TAWANA JAMA Study Date: 02/13/2021 Height: 71 in : :[facility] ReadingLocation: Weight: 249 lb : : Gender: Male BSA: 2.3 m2 : :: 1940 Age: 80 yrs BP: 136/61 mmHg: :Reason For Study: STAPH BACTEREMIA : :Ordering Physician: MARISABEL, : :DUSTIN KAUFMAN Performed By: Jaquelin Finn : :Referring: DUSTIN PETIT : + + Interpretation Summary The ejection fraction is estimated to be 55-60%. The right ventricle is mildly dilated. The mitral valve leaflets appear mildly thickened, but open well. The mitral valve chordae are thickened and/or calcified. There is mild mitral regurgitation. The aortic valve is severely calcified. There is severe aortic stenosis. The calculated aortic valve area is .75 cm2. There is mild aortic regurgitation. There is mild tricuspid regurgitation. Procedure: A two-dimensional transthoracic echocardiogram with color flow and Doppler was performed. The study quality was technically adequate. There is no prior echocardiogram noted for this patient. The patient was in sinus rhythm with heart rates between 76-86 bpm during the exam. Left Ventricle: The left ventricle is normal in size. There is mild concentric left ventricular hypertrophy. The ejection fraction is estimated to be 55-60%. Left ventricular wall motion is normal. Right Ventricle: The right ventricle is mildly dilated. Right venticular systolic function appears visually grossly normal. Atria: The left atrial size is normal. Right atrial size is normal. There is no Doppler evidence for an interatrial shunt. Mitral Valve: There is mild mitral annular calcification. The mitral valve leaflets appear mildly thickened, but open well. The mitral valve chordae are thickened and/or calcified. There is mild mitral regurgitation. Aortic Valve: The aortic valve is severely calcified. There is severe aortic stenosis. The peak aortic velocity is 4.15 m/sec. The aortic valve mean gradient is 44 mmHg. The calculated aortic valve area is .75 cm2. There is mild aortic regurgitation. Tricuspid Valve: The tricuspid valve leaflets are thin and pliable. There is mild tricuspid regurgitation. Right ventricular systolic pressure is estimated to be 25 mmHg plus the clinically estimated CVP which cannot be estimated on this exam. Pulmonic Valve: The pulmonic valve leaflets are thin and pliable; valve motion is normal. There is no pulmonic valvular regurgitation. Great Vessels: The aortic root is borderline dilated. The ascending aorta is mildly enlarged. The inferior vena cava was not well visualized. Pericardium/ Pleura There is no pericardial effusion. There is no pleural effusion. MMode/2D Measurements & Calculations LVIDd: 5.5 cm LVOT diam: 2.0 cm LVIDs: 3.6 cm Ao root diam: 4.0 cm FS: 35.0 % asc Aorta Diam: 3.4 cm IVSd: 1.3 cm Ao Arch Diam (Prox Trans): 3.5 cm LVPWd: 1.2 cm LV mooney. diameter/BSA (cm/m^2): 2.4 LV sys. diameter/BSA (cm/m^2): 1.5 LA A2 area: 22.0 cm2 RA long axis: 5.0 cm LA A4 area: 19.2 cm2 RA area: 14.9 cm2 LA length (vol): 5.0 cm RA vol: 37.7 ml LA vol: 71.6 ml RA : 16.3 ml/m2 LA vol index: 30.9 ml/m2 RVD1 (basal): 4.6 cm Doppler Measurements & Calculations Ao V2 max: 415.3 cm/sec LVOT Max Richard: 104.4 cm/sec Ao V2 mean: 318.3 cm/sec LV V1 max P.4 mmHg Ao max P.8 mmHg LV V1 VTI: 23.8 cm Ao mean P.1 mmHg JASON(I,D): 0.83 cm2 Ao V2 VTI: 85.5 cm JASON(V,D): 0.75 cm2 sev ratio: 0.28 JASON indexed to BSA (cm^2/m^2): 0.36 MV E max richard: 65.6 cm/sec TR max richard: 248.6 cm/sec MV A max richard: 117.3 cm/sec TR max P.7 mmHg MV E/A: 0.56 PA pr(Accel): 32.8 mmHg Med Peak E' Richard: 6.2 cm/sec E/E' med: 10.5 Lat Peak E' Richard: 6.7 cm/sec E/E' lat: 9.9 E/e' average: 10.2 MV dec time: 0.22 sec SVLVOT): 71.3 ml Reading Physician:08:45 AM
[2021-02-12] MEDS: ENOXAPARIN 40 MG/0.4 ML SYRINGE SUBCUT (08:45)
[2021-02-12] MEDS: OXYCODONE IR 5 MG TABLET PO (08:45)
[2021-02-12] MEDS: METOPROLOL ER 25 MG TABLET PO ×2 (08:45→20:20)
[2021-02-12] MEDS: guaiFENesin ER 600 MG TAB 1200 MG PO (08:46)
--- NOTE | 2021-02-12 09:19 | DIET.PN ---
Dietary Progress Note Assessment: 80y M admitted for open prostatectomy referred to nutrition for reduced appetite. Pt reports reduced appetite since surgery but not before procedure. Per chart review pt is +13kg since 09/22. Pt ate 30% breakfast and feels normally he would eat 100%. Pt having some N/V and just has a low desire to eat. HT: 180.3cm WT: 113.3kg UBW: 99kg BMI: 34.8 Nutrition Diagnosis: none at this time Interventions: 1. Discussed importance of prioritizing protein until appetite returns. Pt has milk, eggs, chicken sausage on breakfast tray. Pt verbalizes understanding. Pt can let nursing know if he would prefer ONS protein drink if appetite remains low. Recc ONS Ensure Max if desired to support protein and micronutrient needs in this obese patient. Diet Order: General Monitoring/Evaluations: POs
--- NOTE | 2021-02-12 12:41 | CM.DPC ---
Addendum entered by CHON Pal 02/12/21 15:50: ADD: SW called Wed [place] [facility] again and was able to speak to the intake person and SW provided some information regarding pt and insurance and she states prior auth would be needed from Medicare and they request that hospital get auth but if we can't then she would attempt to get auth. 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 SW received call back from [facility] admissions and they can accept pt at d/c if SNF needed. No PASRR completed yet as still waiting for culture results and PT eval and recommendations. BF Original Note: DCP Cont: Per MD, pt to get an Echo today and still awaiting cultures to return as pt MAY need 2 weeks IV-Abx Ceftriaxone Q24. SW met bedside with pt and explained role and discussed possible need of IV-Abx for 2 weeks and based on his insurance he likely would not have coverage for home infusion but could be covered by Medicare for outpt infusion clinic or SNF. Pt confirms that his preference is home with outpt infusion and confirms he could have transport set up by friend or son for once a day transport to [facility]. But pt states he also feels weaker than normal and has not been up ambulating much while at the hospital awaiting Echo and results. SW discussed option of SNF if pt is below baseline and unable to safely ambulate independently and his preference would be [facility] in [place] if SNF needed but still hopeful for d/c home. Pt confirms that his son plans to provide transport home at d/c if pt is safe for home at discharge. Pt agreeable with [facility] referral as well as referral to [facility] Wednesday [phone]. SW called [facility] with new referral and discussed pt status and preference for home if possible and then called [facility] in [place] and left [facility] requesting call back. Plan: SW to follow closely for culture results to return to determine if 2 weeks IV-Abx needed and return call from [facility] and PT eval to determine best d/c plan of home vs SNF. CHON Pal
--- NOTE | 2021-02-12 13:58 | PM.PN.1 ---
Subjective Subjective Date Patient Seen: 02/12/21 Time Patient Seen: 08:30 Interval history: The patient is an 80-year-old male admitted after an open prostatectomy with Urology. His heart rate has dramatically improved today, and his supraventricular tachycardia was likely in the setting of severe hypovolemia. The patient feels well today and has minimal pain after his surgery. He denies any palpitations, chest pain, nausea, vomiting, or abdominal pain. Overnight he was tachycardic again in probable SVT, betablocker was started and his rate is improved today. WBC 20 today, slightly up from 16. Blood cultures with one set of staph species. Repeat cultures pending. Remains on ceftriaxone. Not MRSA based on PCR so vancomycin not added. TTE was ordered today given possible staph bacteremia. Exam Vital Signs (past 8 hours): - 02/12/21 07:21 02/12/21 08:45 02/12/21 09:24 Temperature 98.8 F Pulse Rate 100 H 91 H Respiratory Rate 18 Blood Pressure 141/95 H 141/95 H Pulse Oximetry 94 02/12/21 11:42 Temperature 99.0 F Pulse Rate 90 Respiratory Rate 16 Blood Pressure 137/65 Pulse Oximetry 92 Oxygen Delivery Method Room Air Oxygen Flow Rate 0 Narrative Exam Narrative: Gen: Alert, oriented, obese 80 y.o. male, diaphoretic HEENT: normocephalic, atraumatic, conjunctiva clear, sclera non-icteric, oral mucosa pink and moist Neck: supple, full ROM, no JVD, trachea is midline Resp: Lungs CTA, non-labored breathing CV: RRR, no murmurs, rubs, or gallops. Abd: soft, non-tender. BRANDT drain with sanguinous output, minimal. : He has a 3 way bladder irrigation Cervantes set up draining pink to red colored urine Skin: no lesions or rashes, dry and intact Neuro: Alert and oriented X 4 w/no focal deficits. Speech clear and coherent. Extremities: moves all 4 extremities, is ambulatory, negative Yolis?s sign Psyche: normal mood and affect. Objective Labs Result Diagrams: 02/12/21 05:18 02/12/21 05:18 Labs: Laboratory Results - last 24 hr 02/11/21 02/12/21 02/12/21 22:24 05:18 05:18 WBC 20.4 H RBC 3.80 L Hgb 11.3 L Hct 34.6 L MCV 90.9 MCH 29.8 MCHC 32.8 RDW 14.3 Plt Count 259 Neut % (Auto) 81.2 H Lymph % (Auto) 11.5 L Williamson % (Auto) 7.1 Eos % (Auto) 0.0 L Baso % (Auto) 0.2 Neut # (Auto) 61164 H Lymph # (Auto) 2300 [place] # (Auto) 1400 H Eos # (Auto) 0 Baso # (Auto) 0 Sodium 137 Potassium 3.8 Chloride 107 Carbon Dioxide 23 BUN 14 Creatinine 0.76 Estimated GFR > 60.0 BUN/Creatinine Ratio 18.4 Glucose 154 H Hemoglobin A1c Calcium 8.5 Magnesium 2.0 Total Bilirubin 0.6 Conjugated Bilirubin 0.0 Unconjugated Bilirubin 0.5 AST 43 ALT 22 Alkaline Phosphatase 86 Total Protein 6.4 Albumin 3.3 L Globulin 3.1 Albumin/Globulin Ratio 1.1 A. baumannii (PCR) Not detected Delia albicans (PCR) Not detected C. glabrata (PCR) Not detected C. krusei (PCR) Not detected C. parapsilosis (PCR) Not detected C. tropicalis (PCR) Not detected Enterobacteriac sp PCR Not detected E. cloacae complex PCR Not detected Enterococcus sp PCR Not detected E. coli (PCR) Not detected H. influenzae (PCR) Not detected Klebsiella oxytoca PCR Not detected Klebsiella pneumoniae Not detected List. monocytogenes PCR Not detected N. meningitidis (PCR) Not detected Proteus species (PCR) Not detected Serratia marcescens PCR Not detected Staphylococcus sp PCR Detected H Staph aureus (PCR) Not detected mecA-Methicil Res Gene Not detected Streptococcus sp PCR Not detected Group A Strep (PCR) Not detected Strep agalactiae (PCR) Not detected Strep pneumoniae (PCR) Not detected P. aeruginosa (PCR) Not detected Pina/B-Vanco Res Genes Not Reportable KPC-Carbap Res Gene PCR Not Reportable 02/12/21 05:18 WBC RBC Hgb Hct MCV MCH MCHC RDW Plt Count Neut % (Auto) Lymph % (Auto) Williamson % (Auto) Eos % (Auto) Baso % (Auto) Neut # (Auto) Lymph # (Auto) Williamson # (Auto) Eos # (Auto) Baso # (Auto) Sodium Potassium Chloride Carbon Dioxide BUN Creatinine Estimated GFR BUN/Creatinine Ratio Glucose Hemoglobin A1c 5.5 Calcium Magnesium Total Bilirubin Conjugated Bilirubin Unconjugated Bilirubin AST ALT Alkaline Phosphatase Total Protein Albumin Globulin Albumin/Globulin Ratio A. baumannii (PCR) Delia albicans (PCR) C. glabrata (PCR) C. krusei (PCR) C. parapsilosis (PCR) C. tropicalis (PCR) Enterobacteriac sp PCR E. cloacae complex PCR Enterococcus sp PCR E. coli (PCR) H. influenzae (PCR) Klebsiella oxytoca PCR Klebsiella pneumoniae List. monocytogenes PCR N. meningitidis (PCR) Proteus species (PCR) Serratia marcescens PCR Staphylococcus sp PCR Staph aureus (PCR) mecA-Methicil Res Gene Streptococcus sp PCR Group A Strep (PCR) Strep agalactiae (PCR) Strep pneumoniae (PCR) P. 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 Medicine consulted initially for an SVT, found to have possible staph bacteremia. 1. SVT, acute, resolved. - likely secondary to hypovolemia, possibly compounded with pain and now found to have bacteremia. Rates to the 170s on telemetry. He had tachycardia to the 130s as an outpatient in the clinic. EKG with an SVT here, now with borderline sinus tachycardia. Troponins were negative. Would recommend outpatient evaluation with PCP for possible chronic tachycardia given outpatient vital signs documented (holter monitor). - have ordered TTE given possible staph bacteremia. - ACS unlikely, troponin negative and no evidence of acute ischemia on EKG. - started on metoprolol overnight with improvement in rate today. 2. possible staph bacteremia or contaminant. - cultures with one set of staph bacterial thus far. Repeat cultures pending. - persistent leukocytosis makes bacteremia more likely. TTE pending. Continue ceftriaxone. - may need ID consultation. Repeat blood cultures pending. 3. s/p Open prostatectomy Managed by urology Code Status: Full code as discussed with patient Nguyễn Gairbay, son, surrogate and POA Quality VTE Deep Vein Thrombosis/Pulmonary Embolism Present on Admission: No
[2021-02-12] MEDS: cefTRIAXone 1,000 MG in SODIUM CHLORIDE 0.9% 100 ML 200 ML IV (20:20)
[2021-02-13] VITALS (7 sets, daily range): BP systolic 121–170; BP diastolic 60–81; PULSE 78–91; RESP 16–20; TEMP 36.6–37.2; O2SAT 94–97
[2021-02-13] MEDS: SODIUM CHLORIDE 0.9% 1,000 ML 84 ML IV (02:06)
[2021-02-13] MEDS: diphenhydrAMINE 25 MG TABLET 50 MG PO ×2 (02:19→20:10)
[2021-02-13 05:13] LABS: Add Manual Diff / Slide Review NO; Basophils Absolute Auto 100 /uL (0-100); Basophils Percent Auto 0.3 % (0-2); Eosinophils Absolute Auto 0 /uL (0-450); Eosinophils Percent Auto 0.1 % (2-4); Hematocrit 30.5 % (41-53); Hemoglobin 10.1 g/dL (13.5-17.5); Lymphocytes Absolute Auto 1700 /uL (1100-4500); Lymphocytes Percent Auto 10.4 % (25-40); Mean Corpuscular Hemoglobin 29.8 PG (26-34); Mean Corpuscular Volume 90.3 fL (80-100); Monocytes Absolute Auto 1200 /uL (0-900); Monocytes Percent Auto 7.6 % (3-14); Neutrophils Absolute Auto 13400 /uL (1500-7000); Neutrophils Percent Auto 81.6 % (50-75); Platelet Count 250 X10^3/uL (150-400); Red Blood Cell Count 3.38 X10^6/uL (4.5-5.9); Red Cell Distribution Width 14.1 % (11.6-14.8); White Blood Cell Count 16.5 X10^3/uL (4.5-11.0)
[2021-02-13 05:20] LABS: Alanine Aminotransferase 19 IU/L (<50); Albumin 2.9 g/dL (3.5-5.0); Alkaline Phosphatase 75 U/L (38-126); Aspartate Aminotransferase 33 IU/L (17-59); BUN Creatinine Ratio 20.4 (6-22); Bilirubin Total 0.4 mg/dL (0.2-1.3); Bilirubin Unconjugated 0.3 mg/dL (0.0-1.1); Blood Urea Nitrogen 11 mg/dL (9-20); Calcium 8.1 mg/dL (8.4-10.2); Carbon Dioxide 27 mmol/L (22-32); Chloride 106 mmol/L (98-107); Estimated Glomerular Filt Rate > 60.0 mL/min (>60); Glucose 120 mg/dL (80-110); HEMOLYSIS < 15 (0-50); Potassium 3.3 mmol/L (3.4-5.1); Sodium 137 mmol/L (137-145); Total Protein 5.9 g/dL (6.3-8.2)
--- NOTE | 2021-02-13 06:08 | PC.NURSE ---
0530- Patient lungs auscultated and bibasilar crackles appreciated. DENTAL ASSISTING INSTRUCTOR Kelby notified and fluids stopped per order. Patient denies feeling SOB and he has respirations are WNL. Will monitor.
--- NOTE | 2021-02-13 07:10 | P.PN_ITS ---
Subjective Subjective Date Patient Seen: 02/12/21 Time Patient Seen: 07:00 Interval history: Patient is postoperative day 2. Status post simple open prostatectomy. Last evening he experienced recurrent SVT for which metoprolol was prescribed. Patient responded promptly. He denies nausea or vomiting currently but did have an episode of emesis last evening. He is passing small amount of gas but has not had a bowel movement. Pain control has not been an issue. Exam Vital Signs (past 8 hours): - 02/13/21 03:40 Temperature 97.8 F Pulse Rate 91 H Respiratory Rate 20 Blood Pressure 165/81 H Pulse Oximetry 95 Oxygen Delivery Method Room Air Oxygen Flow Rate 0 Narrative Exam Narrative: He is resting comfortably in bed in no acute distress. Chest-equal and unlabored expansion bilaterally. Abdomen- obese and soft. No distention. Objective Labs Result Diagrams: 02/13/21 04:48 02/13/21 04:48 Labs: Laboratory Results - last 24 hr 02/13/21 02/13/21 04:48 04:48 WBC 16.5 H RBC 3.38 L Hgb 10.1 L Hct 30.5 L MCV 90.3 MCH 29.8 MCHC 33.0 RDW 14.1 Plt Count 250 Neut % (Auto) 81.6 H Lymph % (Auto) 10.4 L Marshall % (Auto) 7.6 Eos % (Auto) 0.1 L Baso % (Auto) 0.3 Neut # (Auto) 73595 H Lymph # (Auto) 1700 [place] # (Auto) 1200 H Eos # (Auto) 0 Baso # (Auto) 100 Sodium 137 Potassium 3.3 L Chloride 106 Carbon Dioxide 27 BUN 11 Creatinine 0.54 L Estimated GFR > 60.0 BUN/Creatinine Ratio 20.4 Glucose 120 H Calcium 8.1 L Magnesium 2.0 Total Bilirubin 0.4 Conjugated Bilirubin 0.0 Unconjugated Bilirubin 0.3 AST 33 ALT 19 Alkaline Phosphatase 75 Total Protein 5.9 L Albumin 2.9 L Globulin 3.0 Albumin/Globulin Ratio 1.0 PFSH Medical History BPH (benign prostatic hyperplasia) BPH w urinary obs/LUTS Elevated PSA HLD (hyperlipidemia) Pseudophakia Surgical History History of cataract surgery Hx of prostate biopsy (12/10/20) Hx of tonsillectomy (1945) Social History marital status: household members: none Smoking Status: Never smoker alcohol intake: never caffeine: 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 Overall stable postoperative day 2 status post simple open prostatectomy. 2. Staph epidermidis UTI/sepsis. Urine culture indicates sensitivities. 3. Begin Cipro 500 mg p.o. b.i.d. per culture report. Plan: 1. Continue to increase diet and activity. 2. Continue to monitor vitals and laboratories. 3. Follow-up and discuss pathology when final. Quality VTE Deep Vein Thrombosis/Pulmonary Embolism Present on Admission: No
--- NOTE | 2021-02-13 07:45 | PM.PN.1 ---
Subjective Subjective Date Patient Seen: 02/13/21 Time Patient Seen: 07:45 Interval history: Patient is postop day 3. Status post simple open prostatectomy. Final urine culture is growing Staph epidermidis sensitivities are completed. Blood cultures indicate preliminary growth Staph species. Final pending. He has been hemodynamically stable. He is currently undergoing a bedside cardiac echo. He is had a bowel movement and is passing gas. Pain control is not been an issue. Exam Vital Signs (past 8 hours): - 02/13/21 03:40 Temperature 97.8 F Pulse Rate 91 H Respiratory Rate 20 Blood Pressure 165/81 H Pulse Oximetry 95 Oxygen Delivery Method Room Air Oxygen Flow Rate 0 Narrative Exam Narrative: Resting comfortably in bed getting cardiac echo. He is in no acute distress. Abdominal incision and dressings are intact. BRANDT op it demonstrates CT serosanguineous. Urine is clear without blood or clot. Objective Labs Result Diagrams: 02/13/21 04:48 02/13/21 04:48 Labs: Laboratory Results - last 24 hr 02/13/21 02/13/21 04:48 04:48 WBC 16.5 H RBC 3.38 L Hgb 10.1 L Hct 30.5 L MCV 90.3 MCH 29.8 MCHC 33.0 RDW 14.1 Plt Count 250 Neut % (Auto) 81.6 H Lymph % (Auto) 10.4 L [place] % (Auto) 7.6 Eos % (Auto) 0.1 L Baso % (Auto) 0.3 Neut # (Auto) 36361 H Lymph # (Auto) 1700 [place] # (Auto) 1200 H Eos # (Auto) 0 Baso # (Auto) 100 Sodium 137 Potassium 3.3 L Chloride 106 Carbon Dioxide 27 BUN 11 Creatinine 0.54 L Estimated GFR > 60.0 BUN/Creatinine Ratio 20.4 Glucose 120 H Calcium 8.1 L Magnesium 2.0 Total Bilirubin 0.4 Conjugated Bilirubin 0.0 Unconjugated Bilirubin 0.3 AST 33 ALT 19 Alkaline Phosphatase 75 Total Protein 5.9 L Albumin 2.9 L Globulin 3.0 Albumin/Globulin Ratio 1.0 PFSH Medical History BPH (benign prostatic hyperplasia) BPH w urinary obs/LUTS Elevated PSA HLD (hyperlipidemia) Pseudophakia Surgical History History of cataract surgery Hx of prostate biopsy (12/10/20) Hx of tonsillectomy (1945) Social History marital status: household members: none Smoking Status: Never smoker alcohol intake: never caffeine: 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 Hemodynamically stable postoperative day 3 status post simple open prostatectomy. 2. Staph epidermidis UTI and possible Staph epidermis sepsis. Plan: 1. Await final blood culture sensitivities, but likely same organism as cultured from urine. Will begin oral antibiotic based on that culture now. Once a suitable oral agent is verified for both blood and urine cultures the patient will be stable for discharge urologic standpoint. Postop follow-up will be routine post simple open prostatectomy. 2. Pathology pending. Will discuss when final available. Quality VTE Deep Vein Thrombosis/Pulmonary Embolism Present on Admission: No
[2021-02-13] MEDS: guaiFENesin ER 600 MG TAB 1200 MG PO (08:28)
[2021-02-13] MEDS: METOPROLOL ER 25 MG TABLET PO ×2 (08:28→20:10)
[2021-02-13] MEDS: BISACODYL 10 MG SUPP PR (08:28)
[2021-02-13] MEDS: ENOXAPARIN 40 MG/0.4 ML SYRINGE SUBCUT (08:28)
[2021-02-13] MEDS: POTASSIUM CHLORIDE 20 MEQ TAB 40 MEQ PO (10:10)
--- NOTE | 2021-02-13 11:01 | CM.DPC ---
Addendum entered by Myrna Kerr LPN 02/13/21 15:52: Received another call from Nguyễn who requests that pt's granddaughter Breana Mijares be allowed to be part of the discussion with pt tomorrow. Bump Grader Operator Alissa has now talked with eddie lore Linares who gives permission for same. He states that he and Breana have been trying to help pt over the last 6 months as his home situation is beginning to fail. A [facility]-Line is in place and they are trying to get help in to clean the home as pt is not capable anymore of the basic surveillance officer. He said his who works as RN at the [employer] did talk with pt's PCP Dr. Kennedy who advised them that pt should definitely have a snf rehab stay and advised them to refuse to take him at d/c if he would not go agree to go to the snf. Explained why this is not an correct understanding of the way a hospital d/c works and that pt could not be forced to go against his will but hopefully with discussion he will be agreeable. Nguyễn confirms that regardless of whether an IV treatment is needed the family and PCP think pt will need the snf rehab process in order to transition home safely. After snf, HH would be very helpful. P: [facility] when stable for same and as per above. Addendum entered by Myrna Kerr LPN 02/13/21 13:05: Have spoken now with PT Jaquelin who is recommending snf consideration vs someone to assist pt at home 22/02 and HH. OT is seeing pt also. FWW is recommended and pt does not have one. Have now had a good discussion by phone wth POA son Nguyễn. Explained options as per outlined in note below and the unknow factors at this time. Nguyễn says that family had not planned to stay with pt after d/c and he readily agreed that snf would likely be best and especially if IV antibiotics were needed. His is an RN and he will discuss all this with her and he will call his father to discuss. He will also obtain copies of pt's [employer] vax card and will be here tomorrow for further discussion with his father ( I call him Gildardo, I am adopted) and this d/c c4 planner. Hopefully will have more clarity by then re infection tx plan. Original Note: GARRYP: continued: case received, EMR reviewed and discussed in Team Rounds. Dr. Cuenca, consulting hospitalist says that he and Dr. Penny are continuing discussion on recommendations for post d/c plan. Dr. Tian was in early this morning and his progress note says that pt will be ready for d/c when an oral antibiotic has been found that is appropriate. Followed with [facility], December who says that pt has been accepted whenever stable for d/c. PT and OT are now ordered. Left a for pt's son Nguyễn Garibay and met with pt. Asked about the plan for snf if need be and he again said that this would be fine. Went back in 5 minutes later with the [facility] brochure and pt said no, I'm not interested in that at all. I can't remember what I said but I want to go home. Checked in with RN Ramón who notes she was very concerned re pt's ability to manage a catheter at home is he is to d/c with that. Did have a discussion with the flakeboard line tender Amanda at [facility] in [place]. She said their clinic is open Wed thru and with pt to go to ER rest of time. She stated that either the primary physician: Ramone Kennedy agrees to take over the IV therapy management or Dr. Silva will need to and this will require several documents from him as he is not certified as a provider at . Have now faxed her the face sheet and Dr. Dumont's progress note for today as he stated orals only. She does confirm that since Medicare A is payer no pre-auth would be needed. DC plan team will need some clarification going forward on the d/c order specifics before can proceed any further. ? home with ? son's support. Perhaps services. Perhaps snf Will follow Will keep trying to reach pt's son.
--- NOTE | 2021-02-13 12:55 | PC.NURSE ---
0800- Removed BRANDT drain per MD order. Pt tolerated well. Had to remove midline dsg since BRANDT and midline dsg were same. Incision well approximated with some bruising to proximal right of incision. No drainage. ~10 ML emptied from BRANDT drain at time of dc. Replaced dsgs with gauze and secured with medipore tape. Pt able to get OOB to chair for breakfast and was agreeable to ambulate in the hallway after breakfast. 2PA to get OOB and SBA/CGA for transfer and mobility. Notified pt of order from Dr. Penny to shower. Pt declined to shower despite encouragement and education.
--- NOTE | 2021-02-13 12:59 | PT.IIE ---
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) Benign prostatic hyperplasia with lower urinary tract symptoms (02/10/21) Bacteremia (02/10/21) Other specified postprocedural states (02/10/21) Surgery Performed Operation Date: 02/10/21 11:15 Actual Procedures p Simple Open Prostatectomy - Haley Penny MD Medical History (Last Reviewed 02/11/21 @ 03:06 by ANSELMO Thorpe) BPH (benign prostatic hyperplasia) BPH w urinary obs/LUTS Elevated PSA HLD (hyperlipidemia) Pseudophakia Physical Therapy Inpatient Evaluation/Re-Eval M1 PT/OT-IP Prior Functional Status Start: 02/13/21 12:48 Freq: NEEDED Status: Active Protocol: Document 02/13/21 12:48 LR (Rec: 02/13/21 12:59 LR [id number]) Medical Review Prior Functional Status Medical History Reviewed Yes Communication WNL Mobility and Gait Amb w/o AD Activities of Daily Living and IADL's reports indep w/ADLs, cooking & cleaning and son onlyhelps w /pets . Social History Household Members none Living Arrangements House Number of Floors (Floors) Two Floors Number of Stairs To Enter/Railing? 3 GI[place] w/rail Home Environment Standard Height Toilet,Tub/ Shower Home Equipment Grab Bars Near Toilet,Grab Bars In Shower Additional Social History Comment Pt has a son that lives in town that can help out; pt can stay on bottom level M2 PT-IP Current Condition Start: 02/13/21 12:48 Freq: NEEDED Status: Active Protocol: Document 02/13/21 12:48 LR (Rec: 02/13/21 12:59 [facility] [email or web address]) Physical Therapy Current Condition Current Condition Evaluation Date 02/13/21 Treatment Diagnosis s/p open prostatectomy, weakness Onset Date 02/10/21 M3 PT-IP Subjective Start: 02/13/21 12:48 Freq: NEEDED Status: Active Protocol: Document 02/13/21 12:48 LR (Rec: 02/13/21 12:59 [facility] [email or web address]) Subjective Physical Therapy Visit Type Type Initial Evaluation Visit Start Time 12:12 Visit Stop Time 12:42 Total Visit Minutes 30 Number of MAIL SERVICE COORDINATOR Visits 0 Physical Therapy Visit Comments Patient Comments Pt agreeable to getting up Patient Goals plans to go home M4 PT-IP Mobility and Gait Start: 02/13/21 12:48 Freq: NEEDED Status: Active Protocol: Document 02/13/21 12:48 [facility] (Rec: 02/13/21 12:59 [facility] [email or web address]) PT-Bed Mobility Assessment Rolling Type of Rolling Roll to Right Level of Assist Contact Guard Assistance Supine to Sit Supine to Sit Moderate Assistance,Bedrails PT-Transfer Assessment Sit to and From Stand Sit to and from Stand Contact Guard Assistance Equipment Transfer Assistive Device Gait Belt,Front Wheeled Walker Orthotic/Prosthetic Devices or Brace: No Gait Assessment Gait Gait Assistance Required: Contact Guard Assist Distance (Feet) 150 Able to Maintain Weight Bearing Status Yes During Gait Assistive Devices Assistive Device Gait Belt,Front Wheeled Walker Orthotic/Prosthetic Devices or Brace: No Gait Deviations General Gait Pattern Decreased Stride Length, Decreased Feet Clearance, Flexed Trunk Factors Limiting Gait Function Factors Limiting Gait Function Decreased Strength,Poor Balance Comments Gait Comments supine to sit w/log roll requires heavy use of rail to roll to R and mod A and rail to sit up. SBA to scoot EOB then sit to stand CGA then amb in hart w/FWW CGA 150ft. He sat in chair CGA w/cues to reach back and back up. Sit to stand CGA then up/down step w /rail in room 3x mod A w/ L DONKEY ENGINE FIRER/FIREMAN and R rail 3 reps. Pt sat in chair again w/CGA and cues to step back and reach backwards. Pt left wtih call light in reach. CM informed of session Stair Climbing Assessment Evaluation Level of Assist On Stairs Moderate Assistance Devices Stair Climbing Assistive Devices Right Railing Technique/Endurance Stair Climbing Direction Ascend and Descend Number of Steps Climbed 3 Query Text: PT-Balance Assessment Sitting Balance and Reactions Static Sitting Balance Ability Normal Dynamic Sitting Balance Ability Normal Standing Balance and Reactions Static Standing Balance Ability Good Dynamic Standing Balance Ability Fair Device Used FWW M5 PT-IP Objective Assessments Start: 02/13/21 12:48 Freq: NEEDED Status: Active Protocol: Document 02/13/21 12:48 [facility] (Rec: 02/13/21 12:59 [facility] [email or web address]) Orientation Orientation/Cognition Level of Alertness Alert Language Function Ability No Deficits Noted Safety Awareness Understands Safety Issues Memory Description No Deficits Noted Strength Lower Extremity Strength Assessment Bilaterally Impaired Comments Strength Comments dec functional strength in BLEs M6 PT-IP Treatment Start: 02/13/21 12:48 Freq: NEEDED Status: Active Protocol: Document 02/13/21 12:48 [facility] (Rec: 02/13/21 12:59 [facility] [email or web address]) Physical Therapy Treatment Education Education Provided Safety M7 PT-IP Assessment and Plan Start: 02/13/21 12:48 Freq: NEEDED Status: Active Protocol: Document 02/13/21 12:48 [facility] (Rec: 02/13/21 12:59 [facility] [email or web address]) PT Summary Assessment and Plan Potential Rehabilitation Potential Good Status of Condition at Evaluation Evolving Summary Impairments Pain,Strength,Balance,Bed Mobility,Transfers,Gait, Activity Tolerance Assessment Summary Pt presents 3 days s/p open prostatectomy w/dec overall strength and impaired mobility . He has difficulty with his bed mobility at this time along w/requiring mod A for steps. If he is to go home, his son would have to stay w/ him and be trained as CG in order to have pt safe at home and would require HH. He would benefit from short SNF rehab to build up strength to return to his typical functional mobility. Goals Bed Mobility Goal Independent Transfer Goal Independent Gait Goal Independent Gait Distance 200ft Other Goals up/down 3 stairs w/R rail SBA Days to Meet Goals 6 Frequency of Treatment Frequency Of Treatment Once a Day Treatment Plan Physical Therapy Treatment Plan Bed Mobility Training,Transfer Training,Gait Training, Therapeutic Exercise,Balance Retraining,Neuromuscular Re-ed Recommendations To Nursing Amount of Assist Needed 1 Person Assist Discharge Recommendations PT Discharge Recommendations Home Health,Home vs SNF Other Discharge Recommendations home w/son help w/HH vs SNF Equipment Needed for Home Before FWW Discharge Transportation Needs at Discharge Private Vehicle,Wheelchair/ Cabulance
--- NOTE | 2021-02-13 16:36 | DI.RAD.S_ITS ---
PROCEDURE: XR ABDOMEN 1V INDICATIONS: hiccups / vomiting after open prostatectomy, eval bowels TECHNIQUE: One view of the abdomen acquired. COMPARISON: None. FINDINGS: Surgical changes and devices: None. Bowel: Bowel gas pattern is is nonspecific Soft tissues: 1.5 centimeter in maximum diameter calcification projects over the lower left hemipelvis. Visualized solid organ contours appear normal in size. Bones: No suspicious bony lesions. IMPRESSION: 1. Nonspecific bowel gas pattern without definite evidence of obstruction. If this patient's symptoms persist or worsen, CT scan of the abdomen pelvis should be considered for further evaluation. 2. 1.5 centimeter calcification projecting over the lower left hemipelvis which cannot be definitively localized or characterized without additional views, however lesion may may represent phlebolith or bladder/ureteral stone. Dictated by: Cait Hilliard MD, PhD on 02/13/2021 at 17:08 Approved by: Cait Hilliard MD, PhD on 02/13/2021 at 17:10
--- NOTE | 2021-02-13 17:22 | P.PN_ITS ---
Subjective Subjective Date Patient Seen: 02/13/21 Time Patient Seen: 17:22 Interval history: The patient is an 80-year-old male admitted after an open prostatectomy with Urology. Medicine was consulted for SVT and now found to have possible staph bacteremia versus contaminant. His urine cultures prior to surgery grew mixed shiloh the and was not deemed suitable for culture, the patient does have a culture from a few months ago which does show Staph epidermidis. The patient denies complaints but did develop hiccups later in the day. He states he feels well, although yesterday he did have some vomiting noted by the nursing staff which she did not endorse to me. He denies any chest pain, shortness of breath, fever, chills, headaches today. Exam Vital Signs (past 8 hours): - 02/13/21 12:14 02/13/21 15:55 Temperature 97.9 F 98.9 F Pulse Rate 78 82 Respiratory Rate 16 16 Blood Pressure 154/74 H 121/60 Pulse Oximetry 94 97 Oxygen Delivery Method Room Air Oxygen Flow Rate 0 Narrative Exam Narrative: Gen: Alert, oriented, obese 80 y.o. male, diaphoretic HEENT: normocephalic, atraumatic, conjunctiva clear, sclera non-icteric, oral mucosa pink and moist Neck: supple, full ROM, no JVD, trachea is midline Resp: Lungs CTA, non-labored breathing CV: RRR, no murmurs, rubs, or gallops. Abd: soft, non-tender. BRANDT drain with sanguinous output, minimal. : He has a 3 way bladder irrigation Cervantes set up draining pink to red colored urine Skin: no lesions or rashes, dry and intact Neuro: Alert and oriented X 4 w/no focal deficits. Speech clear and coherent. Extremities: moves all 4 extremities, is ambulatory, negative Yolis?s sign Psyche: normal mood and affect. Objective Labs Result Diagrams: 02/13/21 04:48 02/13/21 04:48 Labs: Laboratory Results - last 24 hr 02/13/21 02/13/21 04:48 04:48 WBC 16.5 H RBC 3.38 L Hgb 10.1 L Hct 30.5 L MCV 90.3 MCH 29.8 MCHC 33.0 RDW 14.1 Plt Count 250 Neut % (Auto) 81.6 H Lymph % (Auto) 10.4 L [place] % (Auto) 7.6 Eos % (Auto) 0.1 L Baso % (Auto) 0.3 Neut # (Auto) 21675 H Lymph # (Auto) 1700 [place] # (Auto) 1200 H Eos # (Auto) 0 Baso # (Auto) 100 Sodium 137 Potassium 3.3 L Chloride 106 Carbon Dioxide 27 BUN 11 Creatinine 0.54 L Estimated GFR > 60.0 BUN/Creatinine Ratio 20.4 Glucose 120 H Calcium 8.1 L Magnesium 2.0 Total Bilirubin 0.4 Conjugated Bilirubin 0.0 Unconjugated Bilirubin 0.3 AST 33 ALT 19 Alkaline Phosphatase 75 Total Protein 5.9 L Albumin 2.9 L Globulin 3.0 Albumin/Globulin Ratio 1.0 PFSH Medical History BPH (benign prostatic hyperplasia) BPH w urinary obs/LUTS Elevated PSA HLD (hyperlipidemia) Pseudophakia Surgical History History of cataract surgery Hx of prostate biopsy (12/10/20) Hx of tonsillectomy (194) Social History marital status: household members: none Smoking Status: Never smoker alcohol intake: never caffeine: 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 Medicine consulted initially for an SVT, found to have possible staph bacteremia. 1. SVT, acute, resolved. - likely secondary to hypovolemia, possibly compounded with pain and now found to have bacteremia. Rates to the 170s on telemetry. He had tachycardia to the 130s as an outpatient in the clinic. EKG with an SVT here, now with borderline sinus tachycardia. Troponins were negative. Would recommend outpatient evaluation with PCP for possible chronic tachycardia given outpatient vital signs documented (holter monitor). - have ordered TTE given possible staph bacteremia. No evidence of endocarditis and cultures appear to have quickly cleared. He does have severe aortic stenosis, however on TTE, with normal EF. - ACS unlikely, troponin negative and no evidence of acute ischemia on EKG. - started on metoprolol with improvement in rates. May also have been related to bacteremia discussed below. 2. possible staph bacteremia or contaminant. - cultures with one set of staph bacteria. Repeat cultures negative. - persistent leukocytosis makes bacteremia more likely. TTE without evidence of endocarditis. Continue ceftriaxone. -his urine culture prior to surgery shows mixed shiloh. He has a previous urine culture was Staph epidermidis. Should he have developed bacteremia from Staph epidermidis in his urine this would still be an uncomplicated Staph bacteremia which requires 2 weeks of IV antibiotics for complete cure. The question at this time remains if this culture was a contaminant, but this decision will likely rest on what ultimately grows from his blood culture. 3. s/p Open prostatectomy Managed by urology 4. Hiccups - ordered abdominal XR, further workup per primary service as this could be complication from his surgery. Code Status: Full code as discussed with patient Nguyễn Garibay, son, surrogate and POA Quality VTE Deep Vein Thrombosis/Pulmonary Embolism Present on Admission: No
--- NOTE | 2021-02-13 18:26 | PC.NURSE ---
Dr. Penny notified via phone on patient's status, including hiccups, loose bowels, and lack of appetite. Results from Abdominal xray read to MD as well, orders received, read back.
[2021-02-13] MEDS: cefTRIAXone 1,000 MG in SODIUM CHLORIDE 0.9% 100 ML 200 ML IV (20:08)
[2021-02-13] MEDS: SENNOSIDES 8.6 MG TABLET 17.2 MG PO (20:10)
[2021-02-13] MEDS: CIPROFLOXACIN 250 MG TABLET 500 MG PO (20:14)
[2021-02-14] VITALS: BP 140/84; PULSE 95; RESP 16; TEMP 36.7; O2SAT 94
[2021-02-14 04:00] VITALS: BP 163/75; PULSE 80; RESP 17; TEMP 36.6; O2SAT 95
[2021-02-14 06:17] LABS: Add Manual Diff / Slide Review NO; Basophils Absolute Auto 0 /uL (0-100); Basophils Percent Auto 0.1 % (0-2); Eosinophils Absolute Auto 0 /uL (0-450); Eosinophils Percent Auto 0.2 % (2-4); Hematocrit 30.3 % (41-53); Lymphocytes Absolute Auto 1700 /uL (1100-4500); Mean Corpuscular HGB Conc 33.1 % (30-36); Mean Corpuscular Hemoglobin 29.9 PG (26-34); Mean Corpuscular Volume 90.3 fL (80-100); Monocytes Absolute Auto 1000 /uL (0-900); Monocytes Percent Auto 7.1 % (3-14); Neutrophils Absolute Auto 11700 /uL (1500-7000); Neutrophils Percent Auto 80.6 % (50-75); Platelet Count 262 X10^3/uL (150-400); Red Blood Cell Count 3.36 X10^6/uL (4.5-5.9); Red Cell Distribution Width 14.3 % (11.6-14.8); White Blood Cell Count 14.5 X10^3/uL (4.5-11.0)
[2021-02-14 06:21] LABS: BUN Creatinine Ratio 24.5 (6-22); Blood Urea Nitrogen 13 mg/dL (9-20); Carbon Dioxide 29 mmol/L (22-32); Chloride 101 mmol/L (98-107); Estimated Glomerular Filt Rate > 60.0 mL/min (>60); Glucose 115 mg/dL (80-110); HEMOLYSIS < 15 (0-50); Potassium 3.3 mmol/L (3.4-5.1); Sodium 133 mmol/L (137-145)
[2021-02-14 08:00] VITALS: BP 153/70; PULSE 75; RESP 20; TEMP 36.3; O2SAT 97
[2021-02-14] MEDS: CIPROFLOXACIN 250 MG TABLET 500 MG PO (09:14)
[2021-02-14] MEDS: guaiFENesin ER 600 MG TAB 1200 MG PO (09:14)
[2021-02-14] MEDS: ENOXAPARIN 40 MG/0.4 ML SYRINGE SUBCUT (09:14)
[2021-02-14] MEDS: METOPROLOL ER 25 MG TABLET PO (09:14)
--- NOTE | 2021-02-14 10:35 | P.DS_ITS ---
History of Present Illness History of Present Illness Date Patient Seen: 02/14/21 Time Patient Seen: 10:35 Chief complaint: Simple Open Prostatectomy Narrative: Mr. antoine he is an 80-year-old white male presenting today for schedule simple open prostatectomy for a many year history of advancing and now severe lower urinary tract symptoms. He also has a history of elevated PSA and is status post negative prostate needle biopsy in November of 2020. Urethral length was measured at 6 cm and prostate volume was measured at 330 cc. Trials of medical management were attempted but found to provide very little benefit. He has decided he wants to proceed with definitive therapy. Given the markedly increased volume of the prostate, simple open prostatectomy is indicated. Discharge Providers Provider Date of admission: 02/10/21 10:14 Discharge Date: 02/14/21 Primary care physician: Ramone Kennedy MD Consults: 02/10/21 17:48 Consult to Dietitian, Adult Routine Comment: Reason For Exam: Appetite decrease 02/10/21 20:41 Consult to Hospitalist Service Routine Comment: Consulting Provider: Arthur Cuenca Reason for consultation: Tachycardia 02/13/21 10:49 Consult to Occupational Therapy Evaluate & Treat Comment: Physician Instructions: Evaluate and treat Consult to Physical Therapy Evaluate & Treat Comment: Physician Instructions: Evaluate and Treat Discharge provider: Haley Penny MD Summary Hospital Course Discharge Diagnosis: 1. BPH 2. Staph bacteremia Hospital Course: The patient was admitted on the morning of 02/10/2021 and underwent uncomplicated simple open prostatectomy under Duramorph and general anesthesia. The immediate postoperative night he exhibited elevated heart rate to the 160s but remained in sinus rhythm. Hospitalist consultation was obtained for concerns regarding an acute cardiac event. An acute cardiac event was ruled out. SVT differential then included hypovolemia postoperatively verses bacteremia. Preoperative urine cultures groove 3 or more scant organisms without predominant species and no further culture were performed. 1 of several blood cultures was returned as positive for Staph epidermidis. The patient did have a culture proven Staph epidermidis UTI in September of 2020. Bedside PE ruled out valvular vegetation. Aortic stenosis was documented. Due to uncertainty of whether this is truly a staph bacteremia or contaminant, discussion with Dr. Cuenca was conducted. Concluding opinion is that we would treat the patient as though he in fact had a Staph bacteremia for total of 2 weeks intravenous antibiotic therapy. Because of his age, comorbidities, and living conditions in addition to need for 2 week of intravenous therapy, arrangements are made for retirement facility today. Final pathology demonstrated benign hyperplasia and inflammatory changes. No evidence of malignancy. Exam Vital Signs (past 8 hours): - 02/14/21 04:00 02/14/21 08:00 Temperature 97.9 F 97.4 F L Pulse Rate 80 75 Respiratory Rate 17 20 Blood Pressure 163/75 H 153/70 H Pulse Oximetry 95 97 Oxygen Delivery Method Room Air Oxygen Flow Rate 0 Narrative Exam Narrative: Patient is well-developed in moderately obese resting comfortably in bed. Chest-equal and unlabored expansion bilaterally. Heart-normal sinus rhythm. Abdomen-bowel tones are normal and active. Dressings are intact. Cervantes-indwelling with clear outflow. Objective Labs Result Diagrams: 02/14/21 05:10 02/14/21 05:10 Labs: Laboratory Results - last 24 hr 02/14/21 02/14/21 05:10 05:10 WBC 14.5 H RBC 3.36 L Hgb 10.0 L Hct 30.3 L MCV 90.3 MCH 29.9 MCHC 33.1 RDW 14.3 Plt Count 262 Neut % (Auto) 80.6 H Lymph % (Auto) 12.0 L [place] % (Auto) 7.1 Eos % (Auto) 0.2 L Baso % (Auto) 0.1 Neut # (Auto) 17485 H Lymph # (Auto) 1700 [place] # (Auto) 1000 H Eos # (Auto) 0 Baso # (Auto) 0 Sodium 133 L Potassium 3.3 L Chloride 101 Carbon Dioxide 29 BUN 13 Creatinine 0.53 L Estimated GFR > 60.0 BUN/Creatinine Ratio 24.5 H Glucose 115 H Calcium 8.0 L PFSH Medical History BPH (benign prostatic hyperplasia) BPH w urinary obs/LUTS Elevated PSA HLD (hyperlipidemia) Pseudophakia Surgical History History of cataract surgery Hx of prostate biopsy (12/10/20) Hx of tonsillectomy (194) Social History marital status: household members: none Smoking Status: Never smoker alcohol intake: never caffeine: 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 Overall stable postop day 4. Status post simple open prostatectomy. 2. SVT. Corrected with volume replacement and metoprolol. 3. Possible staph bacteremia. 4. Final pathology indicates benign prostate hyperplasia. Plan of Treatment: 1. Discharge/transfer to retirement facility today. 2. Return to [facility] for Cervantes catheter removal and voiding trial-2 weeks. Discharge Plan Discharge Plan Patient Disposition: SNF Provider Discharge Comment: Contact the urology clinic next week to arrange follow-up appointment. Discharge orders & Medications Prescriptions: New diphenhydramine HCl [Allergy (diphenhydramine)] 25 mg Tablet 50 mg PO BEDTIME PRN (Reason: sleep) 30 Days Qty: 30 RF: 0 metoprolol succinate 25 mg Tablet Extended Release 24 Hr 25 mg PO BID 30 Days Qty: 60 RF: 0 sennosides [senna] 8.6 mg Tablet 17.2 mg PO BEDTIME 14 Days Qty: 28 RF: 0 oxycodone 5 mg Tablet 5 mg PO Q4H PRN (Reason: Pain, Moderate (4-6)) 7 Days Qty: 25 RF: 0 cefazolin 1 gram recon soln 2 g IV Q8HR Qty: 1 RF: 0 cefazolin 1 gram recon soln 2 g IV Q8HR 12 Days Qty: 36 RF: 0 acetaminophen 325 mg Tablet 650 mg PO Q4H PRN (Reason: Pain, Mild (1-3)) 30 Days Qty: 60 RF: 0 Continued guaifenesin [Mucinex] 600 mg Tablet Extended Release 12hr 1,200 mg PO DAILY RF: 0 Vitamin C 100 mg tablet 100 mg PO DAILY RF: 0 Discontinued ciprofloxacin HCl 500 mg tablet 500 mg PO BID Qty: 6 RF: 0 Follow up/Referrals: Ramone Kennedy MD [Primary Care Provider] - Haley Penny MD [Physician] - Diet/Activity/Treatments Diet: Diet as Tolerated Activity: No lifting greater than 15 lb or strenuous activity x4 weeks Other treatments: Shower daily Skin/Wound/Dressing Care Dressing: Remove abdominal dressing Other wound treatment: 02/17/2021 and leave open to air. Cleanse with half water/half hydrogen peroxide as needed to keep incision line clean. Visit Report/Discharge Packet Stand Alone Forms: Surgery Discharge Discharge Data Primary Care Provider: Ramone Kennedy VTE Deep Vein Thrombosis/Pulmonary Embolism Present on Admission: No
--- NOTE | 2021-02-14 11:08 | P.PN_ITS ---
Subjective Subjective Date Patient Seen: 02/14/21 Time Patient Seen: 11:08 Interval history: The patient is an 80-year-old male admitted after an open prostatectomy with Urology. Medicine was consulted for SVT and now found to have probable staph bacteremia versus contaminant. His urine cultures prior to surgery grew mixed shiloh the and was not deemed suitable for culture, the patient does have a culture from a few months ago which does show Staph epidermidis. The patient denies complaints but did develop hiccups later in the day. He states he feels well today. Plan for SNF discharge today. Exam Vital Signs (past 8 hours): - 02/14/21 04:00 02/14/21 08:00 Temperature 97.9 F 97.4 F L Pulse Rate 80 75 Respiratory Rate 17 20 Blood Pressure 163/75 H 153/70 H Pulse Oximetry 95 97 Oxygen Delivery Method Room Air Oxygen Flow Rate 0 Narrative Exam Narrative: Gen: Alert, oriented, obese 80 y.o. male, diaphoretic HEENT: normocephalic, atraumatic, conjunctiva clear, sclera non-icteric, oral mucosa pink and moist Neck: supple, full ROM, no JVD, trachea is midline Resp: Lungs CTA, non-labored breathing CV: RRR, no murmurs, rubs, or gallops. Abd: soft, non-tender. BRANDT drain with sanguinous output, minimal. : Cervantes set up draining pink to red colored urine Skin: no lesions or rashes, dry and intact Neuro: Alert and oriented X 4 w/no focal deficits. Speech clear and coherent. Extremities: moves all 4 extremities, is ambulatory, negative Yolis?s sign Psyche: normal mood and affect. Objective Labs Result Diagrams: 02/14/21 05:10 02/14/21 05:10 Labs: Laboratory Results - last 24 hr 02/14/21 02/14/21 05:10 05:10 WBC 14.5 H RBC 3.36 L Hgb 10.0 L Hct 30.3 L MCV 90.3 MCH 29.9 MCHC 33.1 RDW 14.3 Plt Count 262 Neut % (Auto) 80.6 H Lymph % (Auto) 12.0 L [place] % (Auto) 7.1 Eos % (Auto) 0.2 L Baso % (Auto) 0.1 Neut # (Auto) 45184 H Lymph # (Auto) 1700 [place] # (Auto) 1000 H Eos # (Auto) 0 Baso # (Auto) 0 Sodium 133 L Potassium 3.3 L Chloride 101 Carbon Dioxide 29 BUN 13 Creatinine 0.53 L Estimated GFR > 60.0 BUN/Creatinine Ratio 24.5 H Glucose 115 H Calcium 8.0 L PFSH Medical History BPH (benign prostatic hyperplasia) BPH w urinary obs/LUTS Elevated PSA HLD (hyperlipidemia) Pseudophakia Surgical History History of cataract surgery Hx of prostate biopsy (12/10/20) Hx of tonsillectomy (1944) Social History marital status: household members: none Smoking Status: Never smoker alcohol intake: never caffeine: 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 Medicine consulted initially for an SVT, found to have possible staph bacteremia. 1. SVT, acute, resolved. - likely secondary to hypovolemia, possibly compounded with pain and now found to have bacteremia. Rates to the 170s on telemetry. He had tachycardia to the 130s as an outpatient in the clinic. EKG with an SVT here, now with borderline sinus tachycardia. Troponins were negative. Would recommend outpatient evaluation with PCP for possible chronic tachycardia given outpatient vital signs documented (holter monitor). - TTE ordered given possible staph bacteremia. No evidence of endocarditis and cultures appear to have quickly cleared. He does have severe aortic stenosis, however on TTE, with normal EF. - ACS unlikely, troponin negative and no evidence of acute ischemia on EKG. - started on metoprolol with improvement in rates. May also have been related to bacteremia discussed below. 2. staph bacteremia, acute, present on admission. - cultures with one set of staph bacteria. Repeat cultures negative. - persistent leukocytosis makes bacteremia more likely. TTE without evidence of endocarditis. Responded well to ceftriaxone. Discharge to complete 2 weeks total therapy with cefazolin. Blood cultures still with staph, but speciation pending. Given likelihood of bacteremia recommend 2 weeks of IV cefazolin for uncomplicated staph bacteremia likely from urine source. -his urine culture prior to surgery shows mixed shil[place]. He has a previous urine culture was Staph epidermidis. 3. s/p Open prostatectomy Managed by urology Code Status: Full code as discussed with patient Nguyễn Garibay, son, surrogate and POA Patient's discharge orders to SNF coordinated by medicine team. He appears stable for transfer to SNF for continued rehab and IV antibiotics. End date of cefazolin will be 02/26/21. Quality VTE Deep Vein Thrombosis/Pulmonary Embolism Present on Admission: No
--- NOTE | 2021-02-14 11:29 | CM.DPC ---
DCP: continued: Dr. Cuenca and Dr. Penny have discussed this case this morning and then both spoke with pt. Outcome: pt will be discharged to [facility] today at 1500 via w/c van. He will go on 2 weeks of IV antibiotics, every 8 hours and for duration of 12 days. A PICC or Midline will be placed today and RN coordinator Carmen is working to facilitate this CLAUDIA as the latest pt can be picked up via w/c van for [facility] is [address] Tian has placed the d/c summary and Dr. Cuenca has completed the snf specific orders. PASRR is completed, faxed, placed to snf packet and scan folder. Rapid Covid test is pending. Vax card is expected to come with pt's son. Pt's son and granddaughter are on their way (the early ferry run was cancelled and they will be here on the 1100 boat with eta at hospital 1230. Pt now is agreeable to the snf plan. IMM #2 is presented to pt. Will await his family and follow up prn on final details until pt leaves.
[2021-02-14 11:30] LABS: COVID19 -Nasal RAPID Negative (Negative)
[2021-02-14 12:00] VITALS: BP 119/56; PULSE 81; RESP 18; TEMP 36.7; O2SAT 95
--- NOTE | 2021-02-14 13:55 | PC.NURSE ---
Addendum entered by Rochelle Bull R.N. 02/14/21 15:21: Pt transferred from bed to w/c with 2PA. All belongings sent with pt on dc to [facility]. Addendum entered by Ramón Quinteros R.N. 02/14/21 14:38: Report called to Xin DOBBS at [facility]. Original Note: Pt's family at bedside. With permission from patient, educated to admission dx, medications, treatment/plan of care. Educated to need for IV abx and SNF. Pt and family verbalize understanding. Removed PIV to RAC with cath tip intact. Leaving campos catheter and midline in place per MD order. Plan is for pt to dc at 1500 to [facility].
--- NOTE | 2021-02-14 14:00 | OT.IP.EVAL ---
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) Benign prostatic hyperplasia with lower urinary tract symptoms (02/10/21) Bacteremia (02/10/21) Other specified postprocedural states (02/10/21) Surgery Performed Operation Date: 02/10/21 11:15 Actual Procedures p Simple Open Prostatectomy - Haley Penny MD Past Medical History (Last Reviewed 02/14/21 @ 10:40 by Haley Penny MD) BPH (benign prostatic hyperplasia) BPH w urinary obs/LUTS Elevated PSA History of cataract surgery HLD (hyperlipidemia) Hx of prostate biopsy (12/10/20) Hx of tonsillectomy (1946) Pseudophakia Surgical History (Last Reviewed 02/14/21 @ 10:40 by Haley Penny MD) History of cataract surgery Hx of prostate biopsy (12/10/20) Hx of tonsillectomy (1944) Occupational Therapy Inpatient Evaluation/Re-Eval M1 PT/OT-IP Prior Functional Status Start: 02/13/21 12:48 Freq: NEEDED Status: Discharge Protocol: Document 02/14/21 14:00 [facility] (Rec: 02/14/21 15:26 [facility] [id number]) Medical Review Prior Functional Status Medical History Reviewed Yes Communication WNL Mobility and Gait Amb w/o AD Activities of Daily Living and IADL's reports indep w/ADLs, cooking & cleaning and son only helps w /pets . Social History Household Members none Living Arrangements House Number of Floors (Floors) Two Floors Number of Stairs To Enter/Railing? 3 [place] w/rail Home Environment Standard Height Toilet,Tub/ Shower Home Equipment Grab Bars Near Toilet,Grab Bars In Shower Additional Social History Comment Pt has a son that lives in town that can help out; pt can stay on bottom level M2 OT-IP Current Condition Start: 02/14/21 15:12 Freq: Status: Discharge Protocol: Document 02/14/21 14:00 [facility] (Rec: 02/14/21 15:26 [facility] [id number]) Occupational Therapy Current Condition Current Condition Evaluation Date 02/14/21 Treatment Diagnosis s/p open prostatectomy, decreased mobility M3 OT- IP Subjective and Pain Start: 02/14/21 15:12 Freq: Status: Discharge Protocol: Document 02/14/21 14:00 [facility] (Rec: 02/14/21 15:26 [facility] [id number]) OT- Subjective Occupational Therapy Visit Type Type Initial Evaluation Visit Start Time 14:00 Visit Stop Time 14:20 Total Visit Minutes 20 Occupational Therapy Visit Comments Patient Comments Pt wanting to use the bathroom . Patient/Caregiver Goals TO get stronger and be able to care for himself. OT Pain Assessment Pain When Pain Assessed At Rest Pain Present Pain Present Pain Reported M4 OT- IP ADL's Start: 02/14/21 15:12 Freq: Status: Discharge Protocol: Document 02/14/21 14:00 [facility] (Rec: 02/14/21 15:26 [facility] [id number]) OT GPE-Amio-Infsipc Comments OT Self-Feeding Comments NOt at meal time. OT ADL-Grooming General Evaluation Grooming Ability Standby Assistance Areas Needing Assistance Retrieving/Set-up of Grooming Items OT ADL-Oral Care Comments Oral Care Comments Pt refused at thie time. OT ADL-Dressing General Eval Lower Body Dressing Ability Maximum Assistance Areas Needing Assistance Underpants/Brief,Socks Comments OT Dressing Comments Assist to jose g brief over his feet and up over his hips. OT ADL-Toileting General Evaluation Toileting Ability Moderate Assistance Areas Needing Assistance Manage Clothing,Perform Perineal Hygiene Comments OT Toileting Comments Assist for brief management and completeness to wipe. OT ADL-Bathing Bathing Type Bathing Type Sponge Bath General Evaluation Bathing Ability Moderate Assistance Areas Needing Assistance Wash/Dry Back,Wash/Dry Perineal Area M5 OT- IP IADL's Start: 02/14/21 15:12 Freq: Status: Discharge Protocol: Document 02/14/21 14:00 [facility] (Rec: 02/14/21 15:26 [facility] [id number]) OT-Instrumental Activities of Daily Living Home Safety Awareness Awareness of Need for Assistance at Home Decreased Awareness Home Safety Comments Prior pt states able to do all needs for himself. M6 OT- IP Functional Cognition Start: 02/14/21 15:12 Freq: Status: Discharge Protocol: Document 02/14/21 14:00 [facility] (Rec: 02/14/21 15:26 [facility] [id number]) Cognitive Factors Limiting Selfcare Function Cognitive Ability Level of Alertness Alert Patient Orientation Name,Place,Situation Attention Span Ability Capable of Focused Attention, Capable of Sustained Attention Ability to Follow Commands Able to Follow One Step Commands Safety Awareness Underestimates Need for Assistance Cognitive Comments Cognitive Assessment Comments Pt decreased insight to his needs. Pt needing cues to keep the FWW in front of him at all times. M7 OT- IP Mobility and Balance Start: 02/14/21 15:12 Freq: Status: Discharge Protocol: Document 02/14/21 14:00 [facility] (Rec: 02/14/21 15:26 [facility] [id number]) OT- Bed Mobility Assessment Supine to Sit Supine to Sit Assist Minimal Assistance,Bedrails Sit to Supine Sit to Supine Assist Minimal Assistance OT-Transfer Assessment Sit to and From Stand Sit to and from Stand Contact Guard Assistance Technique Transfer Destination Bed,Toilet Transfer Technique Stand Step Pivot Devices Transfer Assistive Devices Gait Belt,Front Wheeled Walker Comments Mobility Comments ALO for bed mobility needs, CGA with FWW. Pt tends to lean and needing cue to keep the FWW closer to him. OT- Balance Assessment Sitting Balance and Reactions Static Sitting Balance Ability Good Dynamic Sitting Balance Ability Fair Standing Balance and Reactions Static Standing Balance Ability Fair Dynamic Standing Balance Ability Poor M8 OT- IP Objective Assessments Start: 02/14/21 15:12 Freq: Status: Discharge Protocol: Document 02/14/21 14:00 [facility] (Rec: 02/14/21 15:26 [facility] [id number]) OT Gross Range of Motion Upper Extremity Range of Motion Assessment Within Functional Limits OT Strength Upper Extremity Strength Assessment Within Functional Limits OT-Muscle Tone Assessment Muscle Tone WNL Yes M9 OT- IP Assessment and Plan Start: 02/14/21 15:12 Freq: Status: Discharge Protocol: Document 02/14/21 14:00 [facility] (Rec: 02/14/21 15:26 [facility] [id number]) OT Summary Assessment and Plan Potential Rehabilitation Potential Good Analytic Complexity at Evaluation Moderate Summary OT Impairments Balance,Functional Cognition, Functional Mobility,Grooming, Dressing,Toileting,Bathing, Toilet Transfers,Shower Transfers,Activity Tolerance Progress Towards Goals Progressing Toward Goals Assessment Summary Pt MOD complexity s/p open prostatectomy and now needing assist for all ADl and functional mobility needs. Pt prior was independent wth all needs except for assist with his pets. Pt would benefit from skilled rehab to work in increasing his independence, safety, balance, and activity tolerance so able to return home again. Pt to go to skilled rehab. Goals Self-Feeding Goal Independent Grooming Goal Independent Dressing Goal Independent Toileting Goal Independent Bathing Goal Independent Toilet Transfer Goal Independent Shower Transfer Goal Independent Days to Meet Goals 20 Frequency of Treatment Frequency Of Treatment Once a Day Treatment Plan OT Treatment Plan ADL Training,Functional Cognition Training,Functional Mobility,Patient/Family Education,Discharge Planning Discharge Recommendations OT Discharge Recommendations SNF Rehab Transportation Needs at Discharge Wheelchair/Cabulance
== END 2021-02-14 15:22 | DRG 707 ==
LOC: AC 17:13 → ICU 02-11 14:37 → AC 02-11 15:19 → ICU 02-11 15:19
PROVIDERS: Internal Medicine; Nurse Practitioner Family; Admitting Provider Specialist; PCP Student in an Organized Health Care Education/Training Program; Referring Provider Specialist; Visit Provider Specialist
PROC: 0VT00ZZ Resection of Prostate, Open Approach (ICD-10-PCS; principal; 2021-02-10 11:15)
DX: N40.1 Benign prostatic hyperplasia with lower urinary tract symptoms (principal); N13.8 Other obstructive and reflux uropathy; I47.1 Supraventricular tachycardia; R78.81 Bacteremia; I35.0 Nonrheumatic aortic (valve) stenosis; R97.20 Elevated prostate specific antigen [PSA]; B95.7 Other staphylococcus as the cause of diseases classified elsewhere; E78.5 Hyperlipidemia, unspecified; E86.1 Hypovolemia; E66.9 Obesity, unspecified; Z68.34 Body mass index [BMI] 34.0-34.9, adult; Z20.822 Contact with and (suspected) exposure to COVID-19
CPT/HCPCS: 36415; 55831; 71045; 74018; 80048; 80076; 82550; 82553; 82565; 83036; 83605; 83735; 84145; 84484; 85025; 87040; 87077; 87086; 87150; 87186; 87205; 87635; 93005; 93010; 93306; 94762; 97116; 97162; 97166; C9803; C9290; J0131; J0690; J0696; J1100; J1650; J2270; J2274; J2405; J2704